=== PATIENT | male | born 1985 | race Caucasian/White ===

== ENCOUNTER 2017-05-11 15:51 | Emergency (ER) | payer OTHER, SELFPAY ==
[2017-05-11 16:15] VITALS: BP 140/92
[2017-05-11] MEDS ORDERED: Acetaminophen/oxyCODONE 325-5 MG Tab PO ONE (16:28)
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
--- NOTE | 2017-05-14 09:05 | CR ---
Left tibia and fibula: Twoviews of the left tibia and fibula were obtained. Comparison: No previous study. No fracture or other bony abnormality is seen. Impression: 1. No abnormality is seen on left tibia and fibula exam. Diagnostic code #1
--- NOTE | 2017-05-14 09:05 | CR ---
Left ankle: Four views of the left ankle were obtained. Comparison: No previous study. Ankle mortise is symmetric. No acute fracture, dislocation or other bony abnormality is seen. Impression: 1. No abnormality is identified on left ankle study. Diagnostic code #1
--- NOTE | 2017-05-14 09:05 | CR ---
Left foot: Four views of the left foot were obtained. Comparison: No previous study. Joint spaces are maintained. No fracture, dislocation or other bony abnormality is seen. Impression: 1. No abnormality is identified on left foot study. Diagnostic code #1
== END 2017-05-11 18:40 | disposition home or self-care (01) ==
LOC: JD.ED 15:51
DX: S89.92XA Unspecified injury of left lower leg, initial encounter (principal); F17.200 Nicotine dependence, unspecified, uncomplicated; V86.59XA Driver of other special all-terrain or other off-road motor vehicle injured in nontraffic accident, initial encounter
CPT/HCPCS: 29515; 73590; 73610; 73630; 99284; A9270; 99283

== ENCOUNTER 2017-06-26 19:23 | Inpatient (IN) | payer OTHER, SELFPAY ==
[2017-06-26] MEDS ORDERED: Sodium Chloride 0.9% 10 ML Syringe FLUSH PRN (20:15)
[2017-06-26] MEDS ORDERED: Piperacillin/Tazobactam 4.5 GM in Sodium Chloride 0.9% 100 ML IV ONE (20:18)
[2017-06-26] MEDS ORDERED: HYDROmorphone 1 MG/ML Syringe IVPUSH ONE (20:18)
[2017-06-26] MEDS ORDERED: Ondansetron 4 MG/2 ML SDV IVPUSH ONE (20:18)
[2017-06-26] MEDS ORDERED: cefTRIAXone 2 GM in Sodium Chloride 0.9% 100 ML IV ONE ×2 (20:18→20:22)
[2017-06-26] MEDS ORDERED: Acetaminophen 325 MG Tab PO ONE (20:18)
[2017-06-26] MEDS ORDERED: Sodium Chloride 0.9% 2,000 ML IV ONE (20:19)
--- NOTE | 2017-06-26 20:26 | EDM.PDOC ---
ED HPI GENERAL MEDICAL PROBLEM - General Chief Complaint: General Stated Complaint: MIGRAINE Time Seen by Provider: 06/26/17 20:05 Source of Information: Reports: Patient History Limitations: Reports: No Limitations - History of Present Illness INITIAL COMMENTS - FREE TEXT/NARRATIVE: Patient is a 31-year-old male who presents to the ED complaining of migraine headache, hot and cold sweats, body aches, poor appetite, and abdominal pain that started yesterday at approximately 1630. Abdominal pain is located to the periumbilical region and right lower quadrant. He does have some pain with urination as well. Pain is worsened with palpation and also with ambulation. States his abdomen feels tight. Patient states he's been up most of the night with these complaints. Has had a poor appetite and has not been consuming any fluids. States he has urinated once today. Headache is described as generalized with no vision changes. He does have sensitivity to light and noise. There is no nuchal rigidity. He's been sleeping all day. Denies any recent precipitating factors that may have provoked a BYRNES. Denies any documented fever, diarrhea, sore throat, cough, SOB, chest pain, diarrhea, or recent sick exposure. He has no pain to his testicles or perianal area. Denies any history of transmitted disease. Headache Pain Score (Numeric/FACES): 8 - Related Data Allergies Allergy/AdvReac Type Severity Reaction Status Date / Time No Known Allergies Allergy Verified 06/27/17 00:29 Home Meds: Home Meds Naproxen [Naprosyn] 250 mg PO ASDIRECTED PRN #30 tablet 06/30/17 [Rx] Propranolol [Inderal LA] 80 mg PO DAILY #30 cap.er 06/30/17 [Rx] SUMAtriptan Succinate [Imitrex] 25 mg PO ASDIRECTED PRN #20 tablet 06/30/17 [Rx] oxyCODONE 10 mg PO Q6H PRN #18 tablet 06/30/17 [Rx] Past Medical History - Past Health History Medical/Surgical History: Denies Medical/Surgical History Musculoskeletal History: Reports: Fracture Social & Family History - Family History Family Medical History: Noncontributory - Tobacco Use Smoking Status *Q: Current Every Day Smoker Years of Tobacco use: 1 Packs/Tins Daily: 0.3 - Caffeine Use Caffeine Use: Reports: Coffee - Recreational Drug Use Recreational Drug Use: No ED ROS GENERAL - Review of Systems Review Of Systems: See Below Constitutional: Reports: Fever, Chills, Malaise, Weakness, Fatigue, Decreased Appetite HEENT: Reports: No Symptoms Respiratory: Denies: Shortness of Breath, Wheezing, Pleuritic Chest Pain, Cough , Sputum Cardiovascular: Denies: Chest Pain, Dyspnea on Exertion, Palpitations, Syncope GI/Abdominal: Reports: Abdominal Pain, Decreased Appetite, Distension, Nausea. Denies: Black Stool, Bloody Stool, Constipation, Diarrhea, Difficulty Swallowing , Flatus, Hematemesis, Hematochezia, Melena, Vomiting : Reports: Dysuria, Hematuria. Denies: Flank Pain, Frequency, Incontinence, Pain (To testicles), Urgency, Urinary Retention Musculoskeletal: Reports: Muscle Pain (Generalized) Skin: Denies: Rash Neurological: Reports: No Symptoms ED EXAM, GENERAL - Physical Exam Exam: See Below Exam Limited By: No Limitations General Appearance: Alert, WD/WN, Moderate Distress Eye Exam: Bilateral Eye: EOMI, Nystagmus (None found), PERRL Ears: Hearing Grossly Normal Nose: Normal Inspection Throat/Mouth: Normal Voice, No Airway Compromise, Other (Dry oral mucosa, no erythema, exudates, swelling to the posterior pharynx ) Neck: Normal Inspection, Supple, Non-Tender, Full Range of Motion. No: Lymphadenopathy (L), Lymphadenopathy (R) Respiratory/Chest: No Respiratory Distress, Lungs Clear, Normal Breath Sounds, No Accessory Muscle Use, Chest Non-Tender Cardiovascular: Normal Peripheral Pulses, Tachycardia Peripheral Pulses: 2+: Radial (R) GI/Abdominal: Soft, No Organomegaly, No Abnormal Bruit, No Mass, Tender ( Periumbilical/McBurney's point), Other (Hyperactive bowel sounds). No: Rigid (Male) Exam: Deferred Rectal (Males) Exam: Deferred Back Exam: Normal Inspection. No: CVA Tenderness (L), CVA Tenderness (R) Extremities: Normal Inspection, Normal Range of Motion, Non-Tender Neurological: Alert, Oriented, CN II-XII Intact, Normal Cognition, No Motor/ Sensory Deficits Psychiatric: Normal Affect, Normal Mood Skin Exam: Dry, Intact, Increased Warmth, Other (Flushed) Course - Vital Signs Last Recorded V/S: Last Vital Signs Temp 98.1 F 06/30/17 08:24 Pulse 53 L 06/30/17 08:24 Resp 20 06/30/17 08:24 BP 131/85 06/30/17 08:24 Pulse Ox 95 06/30/17 08:24 - Orders/Labs/Meds Orders: Medication Orders Albuterol/Ipratropium (Duoneb 3.0-0.5 Mg/3 Ml) 3 ml NEB Q4H PRN PRN Reason: Shortness Of Breath/wheezing Calcium Carbonate/Glycine (Tums) 1,000 mg PO Q2HR PRN PRN Reason: Indigestion Last Admin: 06/30/17 08:39 Dose: 1,000 mg Famotidine (Pepcid) 20 mg PO BID [facility] Last Admin: 06/30/17 08:39 Dose: 20 mg Admin: 06/29/17 23:58 Dose: Admin: 06/29/17 19:36 Dose: 20 mg Admin: 06/29/17 09:14 Dose: 20 mg Admin: 06/28/17 20:08 Dose: 20 mg Hydralazine HCl (Apresoline) 20 mg IVPUSH Q4H PRN PRN Reason: Hypertension Hydromorphone HCl (Dilaudid) 1 mg IVPUSH Q4H PRN PRN Reason: Pain (severe 7-10) Last Admin: 06/29/17 17:56 Dose: 1 mg Admin: 06/29/17 12:44 Dose: 1 mg Admin: 06/29/17 06:29 Dose: 1 mg Admin: 06/29/17 00:26 Dose: 1 mg Admin: 06/28/17 20:09 Dose: 1 mg Admin: 06/28/17 16:13 Dose: 1 mg Admin: 06/28/17 12:56 Dose: 1 mg Admin: 06/28/17 04:35 Dose: 1 mg Admin: 06/27/17 20:32 Dose: 1 mg Admin: 06/27/17 16:22 Dose: 1 mg Admin: 06/27/17 11:58 Dose: 1 mg Promethazine HCl 12.5 mg/ (Sodium Chloride) 50.5 mls @ 100 mls/hr IV Q6H PRN PRN Reason: Nausea/Vomiting Sodium Chloride (Normal Saline) 1,000 mls @ 250 mls/hr IV ASDIRECTED [facility] Last Admin: 06/30/17 09:07 Dose: 250 mls/hr Infusion: 06/30/17 08:32 Dose: 250 mls/hr Admin: 06/30/17 04:32 Dose: 250 mls/hr Infusion: 06/30/17 04:32 Dose: 250 mls/hr Admin: 06/30/17 00:32 Dose: 250 mls/hr Infusion: 06/30/17 00:32 Dose: 250 mls/hr Admin: 06/29/17 20:38 Dose: 250 mls/hr Infusion: 06/29/17 20:38 Dose: 250 mls/hr Admin: 06/29/17 17:01 Dose: 250 mls/hr Infusion: 06/29/17 14:36 Dose: 250 mls/hr Admin: 06/29/17 10:36 Dose: 250 mls/hr Ibuprofen (Motrin) 800 mg PO Q6H PRN PRN Reason: Fever Last Admin: 06/29/17 19:36 Dose: 800 mg Admin: 06/28/17 20:10 Dose: 800 mg Admin: 06/28/17 12:55 Dose: 800 mg Lidocaine (Lidoderm 5%) 700 mg TOP Q24H [facility] Last Admin: 06/29/17 15:40 Dose: Not Given Admin: 06/28/17 17:41 Dose: Not Given Lorazepam (Ativan) 1 mg IV Q6H PRN PRN Reason: Anxiety Last Admin: 06/27/17 09:20 Dose: 1 mg Magnesium Sulfate (Pharmacy To Dose - Magnesium Replacement) 0 dose .XX ASDIRECTED PRN PRN Reason: RX TO MONITOR MAG LEVELS Metoprolol Tartrate (Lopressor) 5 mg IVPUSH Q4H PRN PRN Reason: Tachycardia Ondansetron HCl (Zofran) 4 mg IV Q6H PRN PRN Reason: Nausea/Vomiting Potassium Chloride (Pharmacy To Dose - Potassium Replacement) 0 dose .XX ASDIRECTED PRN PRN Reason: RX TO MONITOR K LEVELS Propranolol HCl (Inderal La) 80 mg PO DAILY [facility] Last Admin: 06/30/17 08:40 Dose: 80 mg Admin: 06/29/17 09:14 Dose: 80 mg Admin: 06/28/17 08:08 Dose: 80 mg Admin: 06/27/17 09:21 Dose: 80 mg Sodium Chloride (Saline Flush) 10 ml FLUSH ASDIRECTED PRN PRN Reason: Keep Vein Open Last Admin: 06/26/17 20:44 Dose: 10 ml Temazepam (Restoril) 15 mg PO BEDTIME PRN PRN Reason: Sleep Tramadol HCl (Ultram) 100 mg PO Q6H PRN PRN Reason: Pain Last Admin: 06/30/17 04:36 Dose: 100 mg Admin: 06/29/17 17:01 Dose: 100 mg Labs: Laboratory Tests 06/26/17 06/26/17 06/26/17 Range/Units 20:40 20:40 20:40 WBC 4.62 (4.23-9.07) K/mm3 RBC 4.82 (4.63-6.08) M/mm3 Hgb 15.3 (13.7-17.5) gm/L Hct 42.1 (40.1-51.0) % MCV 87.3 (79.0-92.2) fl MCH 31.7 (25.7-32.2) pg MCHC 36.3 H (32.2-35.5) g/dl RDW Std Deviation 41.3 (35.1-43.9) fL Plt Count 139 L (163-337) K/mm3 MPV 9.4 (9.4-12.3) fl Neut % (Auto) 81.3 H (34.0-67.9) % Lymph % (Auto) 7.8 L (21.8-53.1) % Lamb % (Auto) 6.9 (5.3-12.2) % Eos % (Auto) 3.2 (0.8-7.0) Baso % (Auto) 0.6 (0.1-1.2) % Neut # (Auto) 3.75 (1.78-5.38) K/mm3 Lymph # (Auto) 0.36 L (1.32-3.57) K/mm3 Lamb # (Auto) 0.32 (0.30-0.82) K/mm3 Eos # (Auto) 0.15 (0.04-0.54) K/mm3 Baso # (Auto) 0.03 (0.01-0.08) K/mm3 Manual Slide Review Abnormal smear PT 11.2 (8.0-13.0) SECONDS INR 1.03 APTT 28 (22-36) SECONDS Sodium 133 L (136-145) mEq/L Potassium 4.1 (3.5-5.1) mEq/L Chloride 98 (98-107) mEq/L Carbon Dioxide 26 (21-32) mEq/L Anion Gap 13.1 (5-15) BUN 16 (7-18) mg/dL Creatinine 1.3 (0.7-1.3) mg/dL Est Cr Clr Drug Dosing 85.01 mL/min Estimated GFR (MDRD) > 60 (>60) mL/min BUN/Creatinine Ratio 12.3 L (14-18) Glucose 118 H (74-106) mg/dL Lactic Acid (0.4-2.0) mmol/L Calcium 8.9 (8.5-10.1) mg/dL Total Bilirubin 4.8 H (0.2-1.0) mg/dL Direct Bilirubin (0.0-0.2) mg/dl GGT (15-85) U/L AST 512 H (15-37) U/L ALT 497 H (16-63) U/L Alkaline Phosphatase 152 H (46-116) U/L C-Reactive Protein 7.0 H* (<1.0) mg/dL Total Protein 7.8 (6.4-8.2) g/dl Albumin 4.1 (3.4-5.0) g/dl Globulin 3.7 gm/dL Albumin/Globulin Ratio 1.1 (1-2) Lipase 64 L (73-393) U/L HIV-1 Ab Rapid Screen (NEGATIVE) 06/26/17 06/26/17 06/26/17 Range/Units 20:40 20:40 21:05 WBC (4.23-9.07) K/mm3 RBC (4.63-6.08) M/mm3 Hgb (13.7-17.5) gm/L Hct (40.1-51.0) % MCV (79.0-92.2) fl MCH (25.7-32.2) pg MCHC (32.2-35.5) g/dl RDW Std Deviation (35.1-43.9) fL Plt Count (163-337) K/mm3 MPV (9.4-12.3) fl Neut % (Auto) (34.0-67.9) % Lymph % (Auto) (21.8-53.1) % Lamb % (Auto) (5.3-12.2) % Eos % (Auto) (0.8-7.0) Baso % (Auto) (0.1-1.2) % Neut # (Auto) (1.78-5.38) K/mm3 Lymph # (Auto) (1.32-3.57) K/mm3 Lamb # (Auto) (0.30-0.82) K/mm3 Eos # (Auto) (0.04-0.54) K/mm3 Baso # (Auto) (0.01-0.08) K/mm3 Manual Slide Review PT (8.0-13.0) SECONDS INR APTT (22-36) SECONDS Sodium (136-145) mEq/L Potassium (3.5-5.1) mEq/L Chloride (98-107) mEq/L Carbon Dioxide (21-32) mEq/L Anion Gap (5-15) BUN (7-18) mg/dL Creatinine (0.7-1.3) mg/dL Est Cr Clr Drug Dosing mL/min Estimated GFR (MDRD) (>60) mL/min BUN/Creatinine Ratio (14-18) Glucose (74-106) mg/dL Lactic Acid 0.7 (0.4-2.0) mmol/L Calcium (8.5-10.1) mg/dL Total Bilirubin (0.2-1.0) mg/dL Direct Bilirubin 1.50 H (0.0-0.2) mg/dl GGT 425 H (15-85) U/L AST (15-37) U/L ALT (16-63) U/L Alkaline Phosphatase (46-116) U/L C-Reactive Protein (<1.0) mg/dL Total Protein (6.4-8.2) g/dl Albumin (3.4-5.0) g/dl Globulin gm/dL Albumin/Globulin Ratio (1-2) Lipase (73-393) U/L HIV-1 Ab Rapid Screen Negative (NEGATIVE) Meds: Medications Generic Name Dose Route Start Last Admin Trade Name Freq PRN Reason Stop Dose Admin Albuterol/Ipratropium 3 ml 06/27/17 00:34 Duoneb 3.0-0.5 Mg/3 Ml NEB Q4H PRN Shortness Of Breath/wheezing Calcium Carbonate/Glycine 1,000 mg 06/29/17 16:12 06/30/17 08:39 Tums PO 1,000 mg Q2HR PRN Administration Indigestion Famotidine 20 mg 06/28/17 21:00 06/30/17 08:39 Pepcid PO 20 mg BID YANELI Administration Hydralazine HCl 20 mg 06/27/17 00:37 Apresoline IVPUSH Q4H PRN Hypertension Hydromorphone HCl 1 mg 06/27/17 00:31 06/29/17 17:56 Dilaudid IVPUSH 1 mg Q4H PRN Administration Pain (severe 7-10) Promethazine HCl 12.5 mg/ 50.5 mls @ 100 mls/hr 06/27/17 00:31 Sodium Chloride IV Q6H PRN Nausea/Vomiting Sodium Chloride 1,000 mls @ 250 mls/hr 06/29/17 10:30 06/30/17 09:07 Normal Saline IV 250 mls/hr ASDIRECTED YANELI Administration Ibuprofen 800 mg 06/28/17 12:42 06/29/17 19:36 Motrin PO 800 mg Q6H PRN Administration Fever Lidocaine 700 mg 06/28/17 16:00 06/29/17 15:40 Lidoderm 5% TOP Not Given Q24H YANELI Lorazepam 1 mg 06/27/17 00:31 06/27/17 09:20 Ativan IV 1 mg Q6H PRN Administration Anxiety Magnesium Sulfate 0 dose 06/27/17 00:45 Pharmacy To Dose - Magnesium Replacement .XX ASDIRECTED PRN RX TO MONITOR MAG LEVELS Metoprolol Tartrate 5 mg 06/27/17 00:37 Lopressor IVPUSH Q4H PRN Tachycardia Ondansetron HCl 4 mg 06/27/17 00:31 Zofran IV Q6H PRN Nausea/Vomiting Potassium Chloride 0 dose 06/27/17 00:45 Pharmacy To Dose - Potassium Replacement .XX ASDIRECTED PRN RX TO MONITOR K LEVELS Propranolol HCl 80 mg 06/27/17 09:00 06/30/17 08:40 Inderal La PO 80 mg DAILY YANELI Administration Sodium Chloride 10 ml 06/26/17 20:15 06/26/17 20:44 Saline Flush FLUSH 10 ml ASDIRECTED PRN Administration Keep Vein Open Temazepam 15 mg 06/27/17 01:00 Restoril PO BEDTIME PRN Sleep Tramadol HCl 100 mg 06/29/17 13:25 06/30/17 04:36 Ultram PO 100 mg Q6H PRN Administration Pain Discontinued Medications Generic Name Dose Route Start Last Admin Trade Name Freq PRN Reason Stop Dose Admin Acetaminophen 975 mg 06/26/17 20:18 06/26/17 20:46 Tylenol PO 06/26/17 20:19 975 mg NOW ONE Administration Acetaminophen 650 mg 06/28/17 04:50 Tylenol PO Q4H PRN Fever Acetaminophen/Butalbital/Caffeine 2 tab 06/27/17 00:19 06/28/17 04:34 Fioricet 325-50-40 Mg PO 2 tab Q6H PRN Administration Headache Dexamethasone 4 mg 06/27/17 01:05 06/27/17 01:33 Dexamethasone IVPUSH 06/27/17 01:06 4 mg ONETIME ONE Administration Diatrizoate Meglum/Diatrizoate Sod 90 ml 06/26/17 22:33 06/26/17 22:34 Gastrografin 37% PO 06/26/17 22:34 90 ml ONETIME ONE Administration Diphenhydramine HCl 50 mg 06/27/17 00:30 06/27/17 00:56 Benadryl IVPUSH 06/27/17 00:31 50 mg ONETIME ONE Administration Famotidine 20 mg 06/27/17 09:00 06/28/17 08:07 Pepcid IVPUSH 20 mg BID YANELI Administration Hydromorphone HCl 1 mg 06/26/17 20:18 06/26/17 20:40 Dilaudid IVPUSH 06/26/17 20:19 1 mg ONETIME ONE Administration Hydromorphone HCl 1 mg 06/27/17 00:04 06/27/17 00:45 Dilaudid IVPUSH 06/27/17 00:05 1 mg ONETIME ONE Administration Piperacillin Sod/Tazobactam 100 mls @ 200 mls/hr 06/26/17 20:18 06/27/17 01: 27 Sod 4.5 gm/ Sodium Chloride IV 06/26/17 20:47 200 mls/hr ONETIME ONE Administration Sodium Chloride 2,000 mls @ 999 mls/hr 06/26/17 20:19 06/26/17 20:38 Normal Saline IV 06/26/17 22:19 999 mls/hr ONETIME ONE Administration Ceftriaxone Sodium 2 gm/ 100 mls @ 200 mls/hr 06/26/17 20:18 06/26/17 20:44 Sodium Chloride IV 06/26/17 20:47 Not Given Q24H ONE Ceftriaxone Sodium 2 gm/ 100 mls @ 200 mls/hr 06/26/17 20:22 06/27/17 00:41 Sodium Chloride IV 06/26/17 20:47 200 mls/hr ONETIME ONE Administration Sodium Chloride Confirm 06/26/17 20:37 06/26/17 20:41 Normal Saline Administered 06/26/17 20:38 Not Given Dose 100 mls @ as directed .ROUTE .STK-MED ONE Sodium Chloride 1,000 mls @ 999 mls/hr 06/26/17 22:57 06/26/17 23:06 Normal Saline IV 06/26/17 23:57 999 mls/hr ONETIME ONE Administration Sodium Chloride 1,000 mls @ 250 mls/hr 06/27/17 00:30 06/27/17 14:53 Normal Saline IV 250 mls/hr ASDIRECTED YANELI Administration Ceftriaxone Sodium 1 gm/ 100 mls @ 200 mls/hr 06/27/17 20:00 Sodium Chloride IV Q24H YANELI Sodium Chloride 100 mls @ 125 mls/hr 06/27/17 15:45 Normal Saline IV ASDIRECTED YANELI Dextrose/Sodium Chloride 1,000 mls @ 125 mls/hr 06/27/17 18:30 06/29/17 02:01 Dextrose 5%-Normal Saline IV 125 mls/hr ASDIRECTED YANELI Administration Iopamidol 125 ml 06/26/17 22:33 06/26/17 22:35 Isovue-300 (61%) IVPUSH 06/26/17 22:34 125 ml ONETIME ONE Administration Magnesium Oxide 400 mg 06/28/17 08:00 06/28/17 08:07 Magnesium Oxide PO 06/28/17 08:01 400 mg ONETIME ONE Administration Metoclopramide HCl 5 mg 06/27/17 00:48 06/27/17 01:31 Reglan IVPUSH 06/27/17 00:49 5 mg ONETIME ONE Administration Ondansetron HCl 4 mg 06/26/17 20:18 06/26/17 20:39 Zofran IVPUSH 06/26/17 20:19 4 mg ONETIME ONE Administration Oxycodone HCl 5 mg 06/27/17 00:31 06/28/17 04:34 Oxycodone PO 5 mg Q4H PRN Administration Pain (moderate 4-6) Pantoprazole Sodium 40 mg 06/27/17 00:34 06/27/17 00:56 Protonix Iv IVPUSH 06/27/17 00:35 40 mg ONETIME ONE Administration Pantoprazole Sodium 40 mg 06/30/17 08:31 06/30/17 08:39 Protonix Iv IVPUSH 06/30/17 08:32 40 mg ONETIME ONE Administration Pneumococcal Polyvalent Vaccine 0.5 ml 06/27/17 01:29 Pneumovax 23 IM 06/27/17 01:30 .ONCE ONE Sumatriptan Succinate 6 mg 06/27/17 00:48 06/27/17 01:30 Imitrex SUBCUT 06/27/17 00:49 Not Given ONETIME ONE Temazepam 30 mg 06/27/17 00:29 06/27/17 00:56 Restoril PO 06/27/17 00:30 30 mg BEDTIME ONE Administration Topiramate 25 mg 06/27/17 00:43 06/27/17 01:32 Topamax PO 06/27/17 00:44 Not Given BEDTIME ONE Topiramate 25 mg 06/27/17 21:00 Topamax PO BEDTIME YANELI - Re-Assessments/Exams Free Text/Narrative Re-Assessment/Exam: Order peripheral IV with normal saline 2000 mL, Tylenol 950 mg by mouth, Dilaudid 1 mg IVP, and Zofran 4 mg IVP. Initial labs and studies include CBC, chem 14, lipase, CRP, lactic acid, UA, blood culture x2, and CT the abdomen and pelvis. Patient had abnormal drainage from penis thus will obtain G/C as well. Patient meets sepsis. Has pain to the right lower quadrant and periumbilical region. No Lockwood sign. Ordered Zosyn 4.5 mg IV and Rocephin 2 g IV in fear patient may have appendicitis. Labs reviewed: White blood cell count 4.62, hemoglobin is 15.3, platelets 139, neutrophil percentage is 81.3, lymphocyte percentage is 7.8, sodium 133, creatinine 1.3, glucose 118, lactic acid 0.7, AST 512, ALT 497, alk phosphatase 152, CRP 7.0, and lipase is 64. Ordered GGT,direct bilirubin, HIV, Urine Drug Tox, and Hepatitis Panel. CT of the abdomen and pelvis results are pending. 2239: CT the abdomen and pelvis did not elicit any acute findings. Shared results of lab and CT with patient. Asked the patient if he has hepatitis to which he denied. States his was positive for hepatitis of unknown type. Spouse was incarcerated and obtained tattoos so presumably she has hepatitis C. Patient has never been tested. Again patient is in a monogamous relationship. He's had 2 sexual partners. Denies any history of STDs. was tested for HIV 7 months ago with of their child and it was negative. Patient has never been tested for HIV. Reassessment, pain to the periumbilical area and RLQ. No lockwood sign present. [address] Robertson he has accepted the patient. Ordered an additional 1 L of normal saline. MCG to be completed. Patient unable to provide UA. Patient meets inpatient criteria. 06/26/17 23:43 Lab was contacted for results of GGT and direct bilirubin. GGT was 425 and direct bilirubin is 1.50. Both results are high. Shared results with Dr. Robertson. He will determine in the a.m. if ultrasound required. Admit order placed. 06/26/17 23:58 HIV Negative. Departure - Departure Time of Disposition: 23:46 Disposition: Admitted As Inpatient 66 Condition: Fair Clinical Impression: Elevated LFTs, Abdominal pain in male, Dehydration fever Fever Qualifiers: Fever type: due to other condition Qualified Code(s): R50.81 - Fever presenting with conditions classified elsewhere - Discharge Information
[2017-06-26] MEDS ORDERED: Sodium Chloride 0.9% 100 ML ONE (20:37)
[2017-06-26] MEDS ORDERED: Diatrizoate Meglumine/Diatrizoate Sodium 37% 120 ML Bottle PO ONE (22:33)
[2017-06-26] MEDS ORDERED: Iopamidol 612 MG/ML 150 ML Bottle IVPUSH ONE (22:33)
[2017-06-26] MEDS ORDERED: Sodium Chloride 0.9% 1,000 ML IV ONE (22:57)
--- NOTE | 2017-06-26 23:46 | PCM.HP ---
H&P History of Present Illness - General Date of Service: 06/26/17 Admit Problem/Dx: Migraine BYRNES and Abdominal Pain Source of Information: Patient, Provider, RN Notes Reviewed History Limitations: Reports: No Limitations - History of Present Illness Initial Comments - Free Text/Narative: This is a 31-year-old healthy white male who presents to the emergency department with complaints of migraine headache along with abdominal pain. His symptoms are associated with hot and cold temperature, sweats, generalized body aches, and poor appetite that started yesterday afternoon. His abdominal pain is localized to the right side extending to the right lower quadrant. He admits to having some hematuria and dysuria with urination. He is sexually active and in a monogamous relationship. He reports no hx/o STDs. His abdominal pain is aggravated by manual palpation and with certain movements. He is passing gas and his last bowel movement was yesterday, regular and without diarrhea. Patient also complains of having abdominal tightness. As for his headaches, he was never formally diagnosed with migraine headaches in the past. However he reports photophobia and phonophobia. His headache run from the frontal region and goes all the way to his posterior head. He reports having muscle tension at the back of his neck. Patient has been sleeping all day due to his current illness. He denies any fever or any upper respiratory infection. Patient denies any history of renal stone. No recent travel. No Hx/o GI surgery or trauma. He drinks occasionally. He smokes 45 cigarettes a day. However he denies illicit drug use. He has been taking Tylenol at least 200 mg PRN for his migraine headaches. Yesterday he took about 6 pills. He also takes Aleve 200 mg if no relief with Tylenol. Patient reports no similar presentation or this kind of illness in the past. His initial workup in emergency department shows a fairly unremarkable CBC with exception of platelet of 139. PT is 11.2, INR is 1.03, and APTT is 28. His chemistry is remarkable for sodium of 133, glucose of 118, total bilirubin of 4.8, direct bilirubin of 1.50, GGT of 425, AST of 512, ALT of 497, alkaline phosphatase of 152, CRP of 7 and lipase of 64. UDS is positive for opiates. His UA is not suggestive of urinary tract infection but noted for 2+ bilirubin and greater than or equal to 8 of urobilinogen. He is HIV 1 antibody negative. His abdomen/pelvis CT scan with IV contrast V-rad report reads diffuse fatty infiltration of the liver. No acute findings. He is being admitted for abdominal pain suspected hepatobiliary disease in etiology cannot rule out acute hepatitis and migraine headache. Headache Pain Score (Numeric/FACES): 8 - Related Data Allergies/Adverse Reactions: Allergies Allergy/AdvReac Type Severity Reaction Status Date / Time No Known Allergies Allergy Verified 06/27/17 00:29 Home Medications: Home Meds . [No Known Home Meds] 06/26/17 [History] Past Medical History - Past Health History Medical/Surgical History: Denies Medical/Surgical History Musculoskeletal History: Reports: Fracture Social & Family History - Family History Family Medical History: Noncontributory - Tobacco Use Smoking Status *Q: Current Every Day Smoker Years of Tobacco use: 1 Packs/Tins Daily: 0.3 - Caffeine Use Caffeine Use: Reports: Coffee - Recreational Drug Use Recreational Drug Use: No H&P Review of Systems - Review of Systems: Review Of Systems: See Below General: Reports: Decreased Appetite. Denies: Fever, Chills, Malaise, Weakness , Fatigue HEENT: Reports: No Symptoms, Headaches, Other (Photophobia) Pulmonary: Denies: Shortness of Breath Cardiovascular: Denies: Chest Pain Gastrointestinal: Reports: Abdominal Pain, Decreased Appetite, Flatus. Denies: Nausea, Vomiting Genitourinary: Reports: Dysuria, Burning, Hematuria Skin: Denies: Cyanosis, Jaundice, Pallor, Bruising, Pruritis, Rash, Erythema, Wound, Lesions Psychiatric: Denies: Depression, Anxiety, Hallucinations, Suicidal Ideation, Homicidal Ideation Neurological: Denies: Difficulty Walking, Weakness, Gait Disturbance Hematologic/Lymphatic: Reports: No Symptoms Immunologic: Reports: No Symptoms Exam - Exam Exam: See Below - Vital Signs Vital Signs: Last Vital Signs Temp 38.8 C H 06/26/17 20:46 Pulse 119 H 06/26/17 19:33 Resp 16 06/26/17 19:33 BP 137/85 06/26/17 19:33 Pulse Ox 99 06/26/17 19:33 Weight: 102.058 kg - Exam General: Alert, Oriented, Cooperative, Mild Distress, Other (Obese) HEENT: Conjunctiva Clear, EACs Clear, EOMI, Hearing Intact, Mucosa Moist & [place] , Nares Patent, Normal Nasal Septum, Posterior Pharynx Clear, Pupils Equal, Pupils Reactive, TMs Clear Neck: Supple, Trachea Midline, +2 Carotid Pulse wo Bruit, Full Range of Motion. No: JVD Lungs: Clear to Auscultation, Normal Respiratory Effort Cardiovascular: Regular Rate, Regular Rhythm GI/Abdominal Exam: Soft, No Distention, No Abnormal Bruit, No Mass, Tender (RUQ) , Abnormal Bowel Sounds, Other (Obturator and Psoas sign negative). No: No Organomegaly, Distended, Guarding, Rigid, Rebound, Mass (Male) Exam: Suprapubic Fullness. No: Scrotal Swelling, Urethral Discharge Rectal (Males) Exam: Deferred Back Exam: Normal Inspection, CVA Tenderness (R), Decreased Range of Motion, Vertebral Tenderness Extremities: Normal Inspection, Normal Range of Motion, Non-Tender, No Pedal Edema, Normal Capillary Refill Peripheral Pulses: 3+: Posterior Tibial (L), Posterior Tibial (R), Dorsalis Pedis (L), Dorsalis Pedis (R) Skin: Warm, Dry, Intact, Other (Yellow) Neuro Extensive - Mental Status: Oriented x3, Normal Cognition, Memory Intact Neuro Extensive - Motor, Sensory, Reflexes: CN II-XII Intact (limited due to Migraine BYRNES) Psychiatric: Alert, Normal Affect, Normal Mood - Patient Data Result Diagrams: 06/27/17 05:30 06/27/17 05:30 *Q Meaningful Use (ADM) - VTE *Q VTE Criteria *Q: - Stroke *Q Stroke Criteria *Q: - AMI *Q AMI Criteria *Q: Problem List Initiated/Reviewed/Updated: Yes Orders Last 24hrs: Medication Orders Sodium Chloride (Normal Saline) 1,000 mls @ 999 mls/hr IV ONETIME ONE Stop: 06/26/17 23:57 Last Admin: 06/26/17 23:06 Dose: 999 mls/hr Sodium Chloride (Saline Flush) 10 ml FLUSH ASDIRECTED PRN PRN Reason: Keep Vein Open Last Admin: 06/26/17 20:44 Dose: 10 ml Assessment/Plan Comment:: Assessment/Plan: Acute: Abdominal Pain - Likely 2/2 Hepato-Biliary Disease - Elevated LE and GGT - Non-Alcoholic - Treat Underlying cause - UA is not suggestive of UTI Hepato-Biliary Disease - Infection vs Auto-immune - CT scan V-rad: Diffuse Fatty Liver Disease - Cannot r/o Acute Hepatitis - He denies recent rapid weight loss - Risk factor: In relationship with someone who is infected with viral hepatitis - Hepatitis Panel ordered in ED - DDx: Cholangitis, Cirrhosis, Malignancy, Auto-immune, Drugs/Toxins, Strictures of Bile Ducts, Parasites (unlikely eosinophils are low) Jaundice/Hyperbilubinemia - Hepatic vs Post Hepatic: Suspect Hepatic due to Diffuse Fatty Liver as mentiond on CT scan - Urobilinogen >=8 - Urine Bili 2+, Direct Bili 1.5 and Total Bili 4.8 - RB is normal and no hx/o blood cell disorders (Rule out Pre-hepatic) - U/S in AM Hematuria and Dysuria - Awaiting UA result - Still sexually active with his partner only - STD panel ordered in ED - Already received IV Zosyn and Rocephin in ED Diffuse Fatty Liver Disease on CT scan - Monitor for acute hepatic failure - He has been taking a lot of Tylenol lately due to Migraine HAs - IV hydration and supportive Care - Dietary consult Migraine BYRNES - Photophobia and Tension at the back of his neck - IV Reglan + Sumatriptan and Steroid for immediate relief - IV Benadryl to help with sleep - Topamax +/- BB for maintenance Plan: Admit to Med-Surge Routine AM Labs UDS pos for opiates (he has been getting narcotics for pain control Abdominal U/S in AM STD Panel ordered in ED GS consult in AM He is negative for HIV screening Additional orders as above SW/CM for d/c planning
[2017-06-27] MEDS ORDERED: HYDROmorphone 1 MG/ML Syringe IVPUSH ONE (00:04)
[2017-06-27] MEDS ORDERED: Temazepam 30 MG Cap PO ONE (00:29)
[2017-06-27] MEDS ORDERED: diphenhydrAMINE 50 MG/ML SDV IVPUSH ONE (00:30)
[2017-06-27] MEDS ORDERED: Promethazine 12.5 MG in Sodium Chloride 0.9% 50 ML IV PRN (00:31)
[2017-06-27] MEDS ORDERED: LORazepam 2 MG/ML MDV IV PRN (00:31)
[2017-06-27] MEDS ORDERED: Ondansetron 4 MG/2 ML SDV IV PRN (00:31)
[2017-06-27] MEDS ORDERED: Albuterol/Ipratropium 3.0-0.5 MG/3 ML Neb Soln NEB PRN (00:34)
[2017-06-27] MEDS ORDERED: Pantoprazole 40 MG Vial IVPUSH ONE (00:34)
[2017-06-27] MEDS ORDERED: Metoprolol Tartrate 5 MG/5 ML SDV IVPUSH PRN (00:37)
[2017-06-27] MEDS ORDERED: hydrALAZINE 20 MG/ML SDV IVPUSH PRN (00:37)
[2017-06-27] MEDS ORDERED: Topiramate 25 MG Tab PO ONE (00:43)
[2017-06-27] MEDS: Acetaminophen/Butalbital/Caffeine 325-50-40 MG Tab PO PRN ×2 (00:44→06:13)
[2017-06-27] MEDS ORDERED: SUMAtriptan 6 MG/0.5 ML SDV SUBCUT ONE (00:48)
[2017-06-27] MEDS ORDERED: Metoclopramide 10 MG/2 ML SDV IVPUSH ONE (00:48)
[2017-06-27] MEDS ORDERED: Temazepam 15 MG Cap PO PRN (01:00)
[2017-06-27] MEDS: Sodium Chloride 0.9% 1,000 ML IV SCH ×4 (01:02→14:53)
[2017-06-27] MEDS ORDERED: Dexamethasone 4 MG/ML SDV IVPUSH ONE (01:05)
[2017-06-27] MEDS ORDERED: Pneumococcal Polyvalent-23 Vaccine 0.5 ML SDV IM ONE (01:29)
[2017-06-27 02:36] LABS: C. TRACHOMATIS BY PCR NOT DETECTED; N. GONORRHOEAE BY PCR NOT DETECTED
[2017-06-27] MEDS: oxyCODONE 5 MG Tab PO PRN ×4 (06:13→20:32)
--- NOTE | 2017-06-27 07:21 | CT ---
CT abdomen and pelvis Technique: Multiple axial sections were obtained from the top of the liver inferiorly through the pubic symphysis. Intravenous and oral contrast was utilized. Delayed images were also obtained through the bladder. Comparison: No previous abdominal imaging. Findings: Small portion of the visualized lung bases are clear. Liver shows no focal parenchymal abnormality. Difficult to exclude slight fatty infiltration within the liver. Spleen appears within normal limits. Small amount of reflux of contrast seen into the distal esophagus. Adrenal glands show no nodule. Pancreas is within normal limits. Kidneys show symmetric contrast enhancement without hydronephrosis or mass. Gallbladder shows no calcified gallstones. Aorta shows no aneurysmal dilatation. Appendix is seen and appears normal. No retroperitoneal adenopathy or mesenteric abnormalities are seen. No pelvic mass or adenopathy is seen. Delayed images show contrast within the distal ureters as well as contrast being seen within the bladder. No inflammatory change is identified. No bowel dilatation or free fluid is seen. Bone window settings were reviewed which appear within normal limits for the patient's age. Impression: 1. Incidental findings. Nothing acute is identified on CT study of the abdomen and pelvis. Diagnostic code #2 I agree with preliminary report issued by [employer] ([facility] preliminary report dictated on 06/26/17, 11:36 PM Central Time)
[2017-06-27] MEDS: Famotidine 20 MG/2 ML SDV IVPUSH SCH ×2 (09:20→20:32)
[2017-06-27] MEDS: Propranolol 80 MG Cap.ER PO SCH (09:21)
--- NOTE | 2017-06-27 11:10 | PCM.CONSN ---
- General Info Date of Service: 06/27/17 - Patient Data Vitals - Most Recent: Last Vital Signs Temp 97.2 F 06/27/17 07:45 Pulse 54 L 06/27/17 07:45 Resp 12 06/27/17 07:45 BP 103/59 L 06/27/17 07:45 Pulse Ox 95 06/27/17 07:45 Weight - Most Recent: 105.415 kg I&O - Last 24 Hours: Intake & Output 06/26/17 06/27/17 06/27/17 23:59 07:59 15:59 Intake Total 1425 Output Total 400 Balance 1025 Lab Results Last 24 Hours: Laboratory Results - last 24 hr 06/27/17 06/27/17 06/27/17 Range/Units 00:44 00:45 00:45 WBC (4.23-9.07) K/mm3 RBC (4.63-6.08) M/mm3 Hgb (13.7-17.5) gm/L Hct (40.1-51.0) % MCV (79.0-92.2) fl MCH (25.7-32.2) pg MCHC (32.2-35.5) g/dl RDW Std Deviation (35.1-43.9) fL Plt Count (163-337) K/mm3 MPV (9.4-12.3) fl Neut % (Auto) (34.0-67.9) % Lymph % (Auto) (21.8-53.1) % [place] % (Auto) (5.3-12.2) % Eos % (Auto) (0.8-7.0) Baso % (Auto) (0.1-1.2) % Neut # (Auto) (1.78-5.38) K/mm3 Lymph # (Auto) (1.32-3.57) K/mm3 [place] # (Auto) (0.30-0.82) K/mm3 Eos # (Auto) (0.04-0.54) K/mm3 Baso # (Auto) (0.01-0.08) K/mm3 Manual Slide Review Sodium (136-145) mEq/L Potassium (3.5-5.1) mEq/L Chloride (98-107) mEq/L Carbon Dioxide (21-32) mEq/L Anion Gap (5-15) BUN (7-18) mg/dL Creatinine (0.7-1.3) mg/dL Est Cr Clr Drug Dosing mL/min Estimated GFR (MDRD) (>60) mL/min BUN/Creatinine Ratio (14-18) Glucose (74-106) mg/dL Calcium (8.5-10.1) mg/dL Magnesium (1.8-2.4) mg/dl Total Bilirubin (0.2-1.0) mg/dL AST (15-37) U/L ALT (16-63) U/L Alkaline Phosphatase (46-116) U/L C-Reactive Protein (<1.0) mg/dL Total Protein (6.4-8.2) g/dl Albumin (3.4-5.0) g/dl Globulin gm/dL Albumin/Globulin Ratio (1-2) Urine Color [place] H (Yellow) Urine Appearance Slt cloudy H (Clear) Urine pH 6.0 (5.0-8.0) Ur Specific [place] 1.015 (1.005-1.030) Urine Protein 1+ H (Negative) Urine Glucose (UA) Negative (Negative) Urine Ketones Trace H (Negative) Urine Occult Blood Negative (Negative) Urine Nitrite Negative (Negative) Urine Bilirubin 2+ H (Negative) Urine Urobilinogen >=8.0 H (0.2-1.0) Ur Leukocyte Esterase Negative (Negative) Urine RBC Not seen (0-5) /hpf Urine WBC Not seen (0-5) /hpf Ur Epithelial Cells 0-5 (0-5) /hpf Urine Bacteria Few (FEW) /hpf Urine Mucus Not seen (FEW) /hpf Urine Yeast Not seen (NOT SEEN) Urine Opiates Screen Presumptive positive H (NEGATIVE) Ur Buprenorphine Scrn Negative (NEGATIVE) Ur Oxycodone Screen Negative (NEGATIVE) Urine Methadone Screen Negative (NEGATIVE) Ur Propoxyphene Screen Negative (NEGATIVE) Ur Barbiturates Screen Negative (NEGATIVE) Ur Tricyclics Screen Negative (NEGATIVE) Ur Phencyclidine Scrn Negative (NEGATIVE) Ur Amphetamine Screen Negative (NEGATIVE) U Methamphetamines Scrn Negative (NEGATIVE) U Benzodiazepines Scrn Negative (NEGATIVE) U Cocaine Metab Screen Negative (NEGATIVE) U Marijuana (THC) Screen Negative (NEGATIVE) C trachomatis DNA (PCR) Not detected N gonorrhoeae DNA (PCR) Not detected 06/27/17 06/27/17 Range/Units 05:30 05:30 WBC 5.39 (4.23-9.07) K/mm3 RBC 4.16 L (4.63-6.08) M/mm3 Hgb 13.3 L (13.7-17.5) gm/L Hct 37.4 L (40.1-51.0) % MCV 89.9 (79.0-92.2) fl MCH 32.0 (25.7-32.2) pg MCHC 35.6 H (32.2-35.5) g/dl RDW Std Deviation 42.9 (35.1-43.9) fL Plt Count 130 L (163-337) K/mm3 MPV 9.5 (9.4-12.3) fl Neut % (Auto) 87.9 H (34.0-67.9) % Lymph % (Auto) 4.5 L (21.8-53.1) % [place] % (Auto) 5.9 (5.3-12.2) % Eos % (Auto) 1.3 (0.8-7.0) Baso % (Auto) 0.2 (0.1-1.2) % Neut # (Auto) 4.74 (1.78-5.38) K/mm3 Lymph # (Auto) 0.24 L (1.32-3.57) K/mm3 [place] # (Auto) 0.32 (0.30-0.82) K/mm3 Eos # (Auto) 0.07 (0.04-0.54) K/mm3 Baso # (Auto) 0.01 (0.01-0.08) K/mm3 Manual Slide Review Abnormal smear Sodium 136 (136-145) mEq/L Potassium 4.4 (3.5-5.1) mEq/L Chloride 104 (98-107) mEq/L Carbon Dioxide 23 (21-32) mEq/L Anion Gap 13.4 (5-15) BUN 12 (7-18) mg/dL Creatinine 1.0 (0.7-1.3) mg/dL Est Cr Clr Drug Dosing 110.51 mL/min Estimated GFR (MDRD) > 60 (>60) mL/min BUN/Creatinine Ratio 12.0 L (14-18) Glucose 115 H (74-106) mg/dL Calcium 7.5 L (8.5-10.1) mg/dL Magnesium 2.0 (1.8-2.4) mg/dl Total Bilirubin 5.7 H (0.2-1.0) mg/dL AST 497 H (15-37) U/L ALT 533 H (16-63) U/L Alkaline Phosphatase 132 H (46-116) U/L C-Reactive Protein 7.4 H* (<1.0) mg/dL Total Protein 6.7 (6.4-8.2) g/dl Albumin 3.4 (3.4-5.0) g/dl Globulin 3.3 gm/dL Albumin/Globulin Ratio 1.0 (1-2) Urine Color (Yellow) Urine Appearance (Clear) Urine pH (5.0-8.0) Ur Specific [place] (1.005-1.030) Urine Protein (Negative) Urine Glucose (UA) (Negative) Urine Ketones (Negative) Urine Occult Blood (Negative) Urine Nitrite (Negative) Urine Bilirubin (Negative) Urine Urobilinogen (0.2-1.0) Ur Leukocyte Esterase (Negative) Urine RBC (0-5) /hpf Urine WBC (0-5) /hpf Ur Epithelial Cells (0-5) /hpf Urine Bacteria (FEW) /hpf Urine Mucus (FEW) /hpf Urine Yeast (NOT SEEN) Urine Opiates Screen (NEGATIVE) Ur Buprenorphine Scrn (NEGATIVE) Ur Oxycodone Screen (NEGATIVE) Urine Methadone Screen (NEGATIVE) Ur Propoxyphene Screen (NEGATIVE) Ur Barbiturates Screen (NEGATIVE) Ur Tricyclics Screen (NEGATIVE) Ur Phencyclidine Scrn (NEGATIVE) Ur Amphetamine Screen (NEGATIVE) U Methamphetamines Scrn (NEGATIVE) U Benzodiazepines Scrn (NEGATIVE) U Cocaine Metab Screen (NEGATIVE) U Marijuana (THC) Screen (NEGATIVE) C trachomatis DNA (PCR) N gonorrhoeae DNA (PCR) Med Orders - Current: Current Medications Acetaminophen/Butalbital/Caffeine (Fioricet 325-50-40 Mg) 2 tab PO Q6H PRN PRN Reason: Headache Last Admin: 06/27/17 06:13 Dose: 2 tab Albuterol/Ipratropium (Duoneb 3.0-0.5 Mg/3 Ml) 3 ml NEB Q4H PRN PRN Reason: Shortness Of Breath/wheezing Famotidine (Pepcid) 20 mg IVPUSH BID [facility] Last Admin: 06/27/17 09:20 Dose: 20 mg Hydralazine HCl (Apresoline) 20 mg IVPUSH Q4H PRN PRN Reason: Hypertension Hydromorphone HCl (Dilaudid) 1 mg IVPUSH Q4H PRN PRN Reason: Pain (severe 7-10) Sodium Chloride (Normal Saline) 1,000 mls @ 250 mls/hr IV ASDIRECTED [facility] Last Admin: 06/27/17 09:23 Dose: 250 mls/hr Promethazine HCl 12.5 mg/ (Sodium Chloride) 50.5 mls @ 100 mls/hr IV Q6H PRN PRN Reason: Nausea/Vomiting Lorazepam (Ativan) 1 mg IV Q6H PRN PRN Reason: Anxiety Last Admin: 06/27/17 09:20 Dose: 1 mg Magnesium Sulfate (Pharmacy To Dose - Magnesium Replacement) 0 dose .XX ASDIRECTED PRN PRN Reason: RX TO MONITOR MAG LEVELS Metoprolol Tartrate (Lopressor) 5 mg IVPUSH Q4H PRN PRN Reason: Tachycardia Ondansetron HCl (Zofran) 4 mg IV Q6H PRN PRN Reason: Nausea/Vomiting Oxycodone HCl (Oxycodone) 5 mg PO Q4H PRN PRN Reason: Pain (moderate 4-6) Last Admin: 06/27/17 06:13 Dose: 5 mg Potassium Chloride (Pharmacy To Dose - Potassium Replacement) 0 dose .XX ASDIRECTED PRN PRN Reason: RX TO MONITOR K LEVELS Propranolol HCl (Inderal La) 80 mg PO DAILY [facility] Last Admin: 06/27/17 09:21 Dose: 80 mg Sodium Chloride (Saline Flush) 10 ml FLUSH ASDIRECTED PRN PRN Reason: Keep Vein Open Last Admin: 06/26/17 20:44 Dose: 10 ml Temazepam (Restoril) 15 mg PO BEDTIME PRN PRN Reason: Sleep Discontinued Medications Acetaminophen (Tylenol) 975 mg PO NOW ONE Stop: 06/26/17 20:19 Last Admin: 06/26/17 20:46 Dose: 975 mg Dexamethasone (Dexamethasone) 4 mg IVPUSH ONETIME ONE Stop: 06/27/17 01:06 Last Admin: 06/27/17 01:33 Dose: 4 mg Diatrizoate Meglum/Diatrizoate Sod (Gastrografin 37%) 90 ml PO ONETIME ONE Stop: 06/26/17 22:34 Last Admin: 06/26/17 22:34 Dose: 90 ml Diphenhydramine HCl (Benadryl) 50 mg IVPUSH ONETIME ONE Stop: 06/27/17 00:31 Last Admin: 06/27/17 00:56 Dose: 50 mg Hydromorphone HCl (Dilaudid) 1 mg IVPUSH ONETIME ONE Stop: 06/26/17 20:19 Last Admin: 06/26/17 20:40 Dose: 1 mg Hydromorphone HCl (Dilaudid) 1 mg IVPUSH ONETIME ONE Stop: 06/27/17 00:05 Last Admin: 06/27/17 00:45 Dose: 1 mg Piperacillin Sod/Tazobactam (Sod 4.5 gm/ Sodium Chloride) 100 mls @ 200 mls/hr IV ONETIME ONE Stop: 06/26/17 20:47 Last Admin: 06/27/17 01:27 Dose: 200 mls/hr Sodium Chloride (Normal Saline) 2,000 mls @ 999 mls/hr IV ONETIME ONE Stop: 06/26/17 22:19 Last Admin: 06/26/17 20:38 Dose: 999 mls/hr Ceftriaxone Sodium 2 gm/ (Sodium Chloride) 100 mls @ 200 mls/hr IV Q24H ONE Stop: 06/26/17 20:47 Last Admin: 06/26/17 20:44 Dose: Not Given Ceftriaxone Sodium 2 gm/ (Sodium Chloride) 100 mls @ 200 mls/hr IV ONETIME ONE Stop: 06/26/17 20:47 Last Admin: 06/27/17 00:41 Dose: 200 mls/hr Sodium Chloride (Normal Saline) Confirm Administered Dose 100 mls @ as directed .ROUTE .STK-MED ONE Stop: 06/26/17 20:38 Last Admin: 06/26/17 20:41 Dose: Not Given Sodium Chloride (Normal Saline) 1,000 mls @ 999 mls/hr IV ONETIME ONE Stop: 06/26/17 23:57 Last Admin: 08/02/17 23:06 Dose: 999 mls/hr Ceftriaxone Sodium 1 gm/ (Sodium Chloride) 100 mls @ 200 mls/hr IV Q24H YANELI Iopamidol (Isovue-300 (61%)) 125 ml IVPUSH ONETIME ONE Stop: 06/26/17 22:34 Last Admin: 06/26/17 22:35 Dose: 125 ml Metoclopramide HCl (Reglan) 5 mg IVPUSH ONETIME ONE Stop: 06/27/17 00:49 Last Admin: 06/27/17 01:31 Dose: 5 mg Ondansetron HCl (Zofran) 4 mg IVPUSH ONETIME ONE Stop: 06/26/17 20:19 Last Admin: 06/26/17 20:39 Dose: 4 mg Pantoprazole Sodium (Protonix Iv) 40 mg IVPUSH ONETIME ONE Stop: 06/27/17 00:35 Last Admin: 06/27/17 00:56 Dose: 40 mg Pneumococcal Polyvalent Vaccine (Pneumovax 23) 0.5 ml IM .ONCE ONE Stop: 06/27/17 01:30 Sumatriptan Succinate (Imitrex) 6 mg SUBCUT ONETIME ONE Stop: 06/27/17 00:49 Last Admin: 06/27/17 01:30 Dose: Not Given Temazepam (Restoril) 30 mg PO BEDTIME ONE Stop: 06/27/17 00:30 Last Admin: 06/27/17 00:56 Dose: 30 mg Topiramate (Topamax) 25 mg PO BEDTIME ONE Stop: 06/27/17 00:44 Last Admin: 06/27/17 01:32 Dose: Not Given Topiramate (Topamax) 25 mg PO BEDTIME YANELI Consult PN Assessment/Plan Procedures: Procedures APPLICATION LOWER LEG SPLINT (05/11/17) EMERGENCY DEPT VISIT (05/11/17) X-RAY EXAM OF ANKLE (05/11/17) X-RAY EXAM OF FOOT (05/11/17) X-RAY EXAM OF LOWER LEG (05/11/17) Problem List Initiated/Reviewed/Updated: Yes Plan: surgical consult dictated PRAVEEN
--- NOTE | 2017-06-27 11:23 | PCM.PN ---
- General Info Date of Service: 06/27/17 Admission Dx/Problem (Free Text): Abdominal Pain Subjective Update: Follow up Functional Status: Reports: Pain Controlled, Ambulating, Urinating, New Symptoms - Review of Systems General: Denies: Fever, Weakness, Fatigue, Chills HEENT: Reports: No Symptoms. Denies: Visual Changes Pulmonary: Denies: Shortness of Breath Cardiovascular: Denies: Chest Pain, Palpitations, Dyspnea on Exertion Gastrointestinal: Reports: Abdominal Pain (better), Diarrhea (watery x 4 this am ). Denies: Nausea, Vomiting Genitourinary: Reports: No Symptoms Musculoskeletal: Reports: No Symptoms Skin: Reports: Jaundice. Denies: Cyanosis, Pallor, Rash Neurological: Denies: Confusion, Difficulty Walking, Weakness, Gait Disturbance Psychiatric: Denies: Depression, Anxiety, Hallucinations, Suicidal Ideation, Homicidal Ideation Systems Review Comment:: No overnight or acute issues. He is doing much better. His BYRNES is better and now able to tolerate lights. His LFTS are improving as well. Consulted Dr. Tejeda for further help. - Patient Data Vitals - Most Recent: Last Vital Signs Temp 36.2 C 06/27/17 07:45 Pulse 54 L 06/27/17 07:45 Resp 12 06/27/17 07:45 BP 103/59 L 06/27/17 07:45 Pulse Ox 95 06/27/17 07:45 Weight - Most Recent: 105.415 kg I&O - Last 24 Hours: Intake & Output 06/26/17 06/27/17 06/27/17 22:59 06:59 14:59 Intake Total 1425 Output Total 400 Balance 1025 Lab Results Last 24 Hours: Laboratory Results - last 24 hr 06/27/17 06/27/17 06/27/17 Range/Units 00:44 00:45 00:45 WBC (4.23-9.07) K/mm3 RBC (4.63-6.08) M/mm3 Hgb (13.7-17.5) gm/L Hct (40.1-51.0) % MCV (79.0-92.2) fl MCH (25.7-32.2) pg MCHC (32.2-35.5) g/dl RDW Std Deviation (35.1-43.9) fL Plt Count (163-337) K/mm3 MPV (9.4-12.3) fl Neut % (Auto) (34.0-67.9) % Lymph % (Auto) (21.8-53.1) % [place] % (Auto) (5.3-12.2) % Eos % (Auto) (0.8-7.0) Baso % (Auto) (0.1-1.2) % Neut # (Auto) (1.78-5.38) K/mm3 Lymph # (Auto) (1.32-3.57) K/mm3 [place] # (Auto) (0.30-0.82) K/mm3 Eos # (Auto) (0.04-0.54) K/mm3 Baso # (Auto) (0.01-0.08) K/mm3 Manual Slide Review Sodium (136-145) mEq/L Potassium (3.5-5.1) mEq/L Chloride (98-107) mEq/L Carbon Dioxide (21-32) mEq/L Anion Gap (5-15) BUN (7-18) mg/dL Creatinine (0.7-1.3) mg/dL Est Cr Clr Drug Dosing mL/min Estimated GFR (MDRD) (>60) mL/min BUN/Creatinine Ratio (14-18) Glucose (74-106) mg/dL Calcium (8.5-10.1) mg/dL Magnesium (1.8-2.4) mg/dl Total Bilirubin (0.2-1.0) mg/dL AST (15-37) U/L ALT (16-63) U/L Alkaline Phosphatase (46-116) U/L C-Reactive Protein (<1.0) mg/dL Total Protein (6.4-8.2) g/dl Albumin (3.4-5.0) g/dl Globulin gm/dL Albumin/Globulin Ratio (1-2) Urine Color [place] H (Yellow) Urine Appearance Slt cloudy H (Clear) Urine pH 6.0 (5.0-8.0) Ur Specific [place] 1.015 (1.005-1.030) Urine Protein 1+ H (Negative) Urine Glucose (UA) Negative (Negative) Urine Ketones Trace H (Negative) Urine Occult Blood Negative (Negative) Urine Nitrite Negative (Negative) Urine Bilirubin 2+ H (Negative) Urine Urobilinogen >=8.0 H (0.2-1.0) Ur Leukocyte Esterase Negative (Negative) Urine RBC Not seen (0-5) /hpf Urine WBC Not seen (0-5) /hpf Ur Epithelial Cells 0-5 (0-5) /hpf Urine Bacteria Few (FEW) /hpf Urine Mucus Not seen (FEW) /hpf Urine Yeast Not seen (NOT SEEN) Urine Opiates Screen Presumptive positive H (NEGATIVE) Ur Buprenorphine Scrn Negative (NEGATIVE) Ur Oxycodone Screen Negative (NEGATIVE) Urine Methadone Screen Negative (NEGATIVE) Ur Propoxyphene Screen Negative (NEGATIVE) Ur Barbiturates Screen Negative (NEGATIVE) Ur Tricyclics Screen Negative (NEGATIVE) Ur Phencyclidine Scrn Negative (NEGATIVE) Ur Amphetamine Screen Negative (NEGATIVE) U Methamphetamines Scrn Negative (NEGATIVE) U Benzodiazepines Scrn Negative (NEGATIVE) U Cocaine Metab Screen Negative (NEGATIVE) U Marijuana (THC) Screen Negative (NEGATIVE) C trachomatis DNA (PCR) Not detected N gonorrhoeae DNA (PCR) Not detected 06/27/17 06/27/17 Range/Units 05:30 05:30 WBC 5.39 (4.23-9.07) K/mm3 RBC 4.16 L (4.63-6.08) M/mm3 Hgb 13.3 L (13.7-17.5) gm/L Hct 37.4 L (40.1-51.0) % MCV 89.9 (79.0-92.2) fl MCH 32.0 (25.7-32.2) pg MCHC 35.6 H (32.2-35.5) g/dl RDW Std Deviation 42.9 (35.1-43.9) fL Plt Count 130 L (163-337) K/mm3 MPV 9.5 (9.4-12.3) fl Neut % (Auto) 87.9 H (34.0-67.9) % Lymph % (Auto) 4.5 L (21.8-53.1) % [place] % (Auto) 5.9 (5.3-12.2) % Eos % (Auto) 1.3 (0.8-7.0) Baso % (Auto) 0.2 (0.1-1.2) % Neut # (Auto) 4.74 (1.78-5.38) K/mm3 Lymph # (Auto) 0.24 L (1.32-3.57) K/mm3 [place] # (Auto) 0.32 (0.30-0.82) K/mm3 Eos # (Auto) 0.07 (0.04-0.54) K/mm3 Baso # (Auto) 0.01 (0.01-0.08) K/mm3 Manual Slide Review Abnormal smear Sodium 136 (136-145) mEq/L Potassium 4.4 (3.5-5.1) mEq/L Chloride 104 (98-107) mEq/L Carbon Dioxide 23 (21-32) mEq/L Anion Gap 13.4 (5-15) BUN 12 (7-18) mg/dL Creatinine 1.0 (0.7-1.3) mg/dL Est Cr Clr Drug Dosing 110.51 mL/min Estimated GFR (MDRD) > 60 (>60) mL/min BUN/Creatinine Ratio 12.0 L (14-18) Glucose 115 H (74-106) mg/dL Calcium 7.5 L (8.5-10.1) mg/dL Magnesium 2.0 (1.8-2.4) mg/dl Total Bilirubin 5.7 H (0.2-1.0) mg/dL AST 497 H (15-37) U/L ALT 533 H (16-63) U/L Alkaline Phosphatase 132 H (46-116) U/L C-Reactive Protein 7.4 H* (<1.0) mg/dL Total Protein 6.7 (6.4-8.2) g/dl Albumin 3.4 (3.4-5.0) g/dl Globulin 3.3 gm/dL Albumin/Globulin Ratio 1.0 (1-2) Urine Color (Yellow) Urine Appearance (Clear) Urine pH (5.0-8.0) Ur Specific [place] (1.005-1.030) Urine Protein (Negative) Urine Glucose (UA) (Negative) Urine Ketones (Negative) Urine Occult Blood (Negative) Urine Nitrite (Negative) Urine Bilirubin (Negative) Urine Urobilinogen (0.2-1.0) Ur Leukocyte Esterase (Negative) Urine RBC (0-5) /hpf Urine WBC (0-5) /hpf Ur Epithelial Cells (0-5) /hpf Urine Bacteria (FEW) /hpf Urine Mucus (FEW) /hpf Urine Yeast (NOT SEEN) Urine Opiates Screen (NEGATIVE) Ur Buprenorphine Scrn (NEGATIVE) Ur Oxycodone Screen (NEGATIVE) Urine Methadone Screen (NEGATIVE) Ur Propoxyphene Screen (NEGATIVE) Ur Barbiturates Screen (NEGATIVE) Ur Tricyclics Screen (NEGATIVE) Ur Phencyclidine Scrn (NEGATIVE) Ur Amphetamine Screen (NEGATIVE) U Methamphetamines Scrn (NEGATIVE) U Benzodiazepines Scrn (NEGATIVE) U Cocaine Metab Screen (NEGATIVE) U Marijuana (THC) Screen (NEGATIVE) C trachomatis DNA (PCR) N gonorrhoeae DNA (PCR) Med Orders - Current: Current Medications Acetaminophen/Butalbital/Caffeine (Fioricet 325-50-40 Mg) 2 tab PO Q6H PRN PRN Reason: Headache Last Admin: 06/27/17 06:13 Dose: 2 tab Albuterol/Ipratropium (Duoneb 3.0-0.5 Mg/3 Ml) 3 ml NEB Q4H PRN PRN Reason: Shortness Of Breath/wheezing Famotidine (Pepcid) 20 mg IVPUSH BID [facility] Last Admin: 06/27/17 09:20 Dose: 20 mg Hydralazine HCl (Apresoline) 20 mg IVPUSH Q4H PRN PRN Reason: Hypertension Hydromorphone HCl (Dilaudid) 1 mg IVPUSH Q4H PRN PRN Reason: Pain (severe 7-10) Sodium Chloride (Normal Saline) 1,000 mls @ 250 mls/hr IV ASDIRECTED [facility] Last Admin: 06/27/17 09:23 Dose: 250 mls/hr Promethazine HCl 12.5 mg/ (Sodium Chloride) 50.5 mls @ 100 mls/hr IV Q6H PRN PRN Reason: Nausea/Vomiting Lorazepam (Ativan) 1 mg IV Q6H PRN PRN Reason: Anxiety Last Admin: 06/27/17 09:20 Dose: 1 mg Magnesium Sulfate (Pharmacy To Dose - Magnesium Replacement) 0 dose .XX ASDIRECTED PRN PRN Reason: RX TO MONITOR MAG LEVELS Metoprolol Tartrate (Lopressor) 5 mg IVPUSH Q4H PRN PRN Reason: Tachycardia Ondansetron HCl (Zofran) 4 mg IV Q6H PRN PRN Reason: Nausea/Vomiting Oxycodone HCl (Oxycodone) 5 mg PO Q4H PRN PRN Reason: Pain (moderate 4-6) Last Admin: 06/27/17 06:13 Dose: 5 mg Potassium Chloride (Pharmacy To Dose - Potassium Replacement) 0 dose .XX ASDIRECTED PRN PRN Reason: RX TO MONITOR K LEVELS Propranolol HCl (Inderal La) 80 mg PO DAILY YANELI Last Admin: 06/27/17 09:21 Dose: 80 mg Sodium Chloride (Saline Flush) 10 ml FLUSH ASDIRECTED PRN PRN Reason: Keep Vein Open Last Admin: 06/26/17 20:44 Dose: 10 ml Temazepam (Restoril) 15 mg PO BEDTIME PRN PRN Reason: Sleep Discontinued Medications Acetaminophen (Tylenol) 975 mg PO NOW ONE Stop: 06/26/17 20:19 Last Admin: 06/26/17 20:46 Dose: 975 mg Dexamethasone (Dexamethasone) 4 mg IVPUSH ONETIME ONE Stop: 06/27/17 01:06 Last Admin: 06/27/17 01:33 Dose: 4 mg Diatrizoate Meglum/Diatrizoate Sod (Gastrografin 37%) 90 ml PO ONETIME ONE Stop: 06/26/17 22:34 Last Admin: 06/26/17 22:34 Dose: 90 ml Diphenhydramine HCl (Benadryl) 50 mg IVPUSH ONETIME ONE Stop: 06/27/17 00:31 Last Admin: 06/27/17 00:56 Dose: 50 mg Hydromorphone HCl (Dilaudid) 1 mg IVPUSH ONETIME ONE Stop: 06/26/17 20:19 Last Admin: 06/26/17 20:40 Dose: 1 mg Hydromorphone HCl (Dilaudid) 1 mg IVPUSH ONETIME ONE Stop: 06/27/17 00:05 Last Admin: 06/27/17 00:45 Dose: 1 mg Piperacillin Sod/Tazobactam (Sod 4.5 gm/ Sodium Chloride) 100 mls @ 200 mls/hr IV ONETIME ONE Stop: 06/26/17 20:47 Last Admin: 06/27/17 01:27 Dose: 200 mls/hr Sodium Chloride (Normal Saline) 2,000 mls @ 999 mls/hr IV ONETIME ONE Stop: 06/26/17 22:19 Last Admin: 06/26/17 20:38 Dose: 999 mls/hr Ceftriaxone Sodium 2 gm/ (Sodium Chloride) 100 mls @ 200 mls/hr IV Q24H ONE Stop: 06/26/17 20:47 Last Admin: 06/26/17 20:44 Dose: Not Given Ceftriaxone Sodium 2 gm/ (Sodium Chloride) 100 mls @ 200 mls/hr IV ONETIME ONE Stop: 06/26/17 20:47 Last Admin: 06/27/17 00:41 Dose: 200 mls/hr Sodium Chloride (Normal Saline) Confirm Administered Dose 100 mls @ as directed .ROUTE .STK-MED ONE Stop: 06/26/17 20:38 Last Admin: 06/26/17 20:41 Dose: Not Given Sodium Chloride (Normal Saline) 1,000 mls @ 999 mls/hr IV ONETIME ONE Stop: 06/26/17 23:57 Last Admin: 06/26/17 23:06 Dose: 999 mls/hr Ceftriaxone Sodium 1 gm/ (Sodium Chloride) 100 mls @ 200 mls/hr IV Q24H YANELI Iopamidol (Isovue-300 (61%)) 125 ml IVPUSH ONETIME ONE Stop: 06/26/17 22:34 Last Admin: 06/26/17 22:35 Dose: 125 ml Metoclopramide HCl (Reglan) 5 mg IVPUSH ONETIME ONE Stop: 06/27/17 00:49 Last Admin: 06/27/17 01:31 Dose: 5 mg Ondansetron HCl (Zofran) 4 mg IVPUSH ONETIME ONE Stop: 06/26/17 20:19 Last Admin: 06/26/17 20:39 Dose: 4 mg Pantoprazole Sodium (Protonix Iv) 40 mg IVPUSH ONETIME ONE Stop: 06/27/17 00:35 Last Admin: 06/27/17 00:56 Dose: 40 mg Pneumococcal Polyvalent Vaccine (Pneumovax 23) 0.5 ml IM .ONCE ONE Stop: 06/27/17 01:30 Sumatriptan Succinate (Imitrex) 6 mg SUBCUT ONETIME ONE Stop: 06/27/17 00:49 Last Admin: 06/27/17 01:30 Dose: Not Given Temazepam (Restoril) 30 mg PO BEDTIME ONE Stop: 06/27/17 00:30 Last Admin: 06/27/17 00:56 Dose: 30 mg Topiramate (Topamax) 25 mg PO BEDTIME ONE Stop: 06/27/17 00:44 Last Admin: 06/27/17 01:32 Dose: Not Given Topiramate (Topamax) 25 mg PO BEDTIME YANELI - Exam General: Alert, Oriented, Cooperative, No Acute Distress HEENT: Pupils Equal, Pupils Reactive, EOMI, Mucous Membr. Moist/[place]. No: Scleral Icterus Neck: Supple, Trachea Midline, No JVD Lungs: Clear to Auscultation, Normal Respiratory Effort Cardiovascular: Regular Rate, Regular Rhythm GI/Abdominal Exam: Normal Bowel Sounds, Soft, No Organomegaly, No Distention, No Abnormal Bruit, No Mass, Tender (RUQ). No: Distended, Guarding, Rigid, Rebound, Hepatomegaly, Splenomegaly (Male) Exam: Deferred Back Exam: Normal Inspection, Decreased Range of Motion Extremities: Normal Inspection, Normal Range of Motion, Non-Tender, No Pedal Edema, Normal Capillary Refill Peripheral Pulses: 3+: Posterior Tibial (L), Posterior Tibial (R), Dorsalis Pedis (L), Dorsalis Pedis (R) Skin: Warm, Dry, Intact, Other (Jaundice) Neurological: No New Focal Deficit Psy/Mental Status: Alert, Normal Affect, Suicidal Ideation - Problem List Review Problem List Initiated/Reviewed/Updated: Yes - My Orders Last 24 Hours: My Active Orders 06/27/17 00:19 Acetaminophen/Butalbital/Caff [Fioricet 325-50-40 MG] 2 tab PO Q6H PRN 06/27/17 00:30 Sodium Chloride 0.9% [Normal Saline] 1,000 ml IV ASDIRECTED 06/27/17 00:31 Height and Weight [RC] 04 Oxygen Therapy [RC] PRN Up With Assistance [RC] ASDIRECTED Up ad Jenny [RC] ASDIRECTED VTE/DVT Education [RC] BID Vital Signs [RC] Q4H HYDROmorphone [Dilaudid] 1 mg IVPUSH Q4H PRN LORazepam [Ativan] 1 mg IV Q6H PRN Ondansetron [Zofran] 4 mg IV Q6H PRN Promethazine [Phenergan] 12.5 mg Sodium Chloride 0.9% [Normal Saline] 50 ml IV Q6H oxyCODONE 5 mg PO Q4H PRN Resuscitation Status Routine 06/27/17 00:32 Intake and Output [RC] 04,16 06/27/17 00:33 Antiembolic Devices [RC] BID Sequential Compression Device [OM.PC] Per Unit Routine 06/27/17 00:34 Albuterol/Ipratropium [DuoNeb 3.0-0.5 MG/3 ML] 3 ml NEB Q4H PRN 06/27/17 00:35 RT Aerosol Therapy [RC] ASDIRECTED Consult to Case Management [CONS] Routine Consult to General Teller [CONS] Routine 06/27/17 00:37 Metoprolol Tartrate [Lopressor] 5 mg IVPUSH Q4H PRN hydrALAZINE [Apresoline] 20 mg IVPUSH Q4H PRN 06/27/17 00:45 Magnesium Rep Pharmacy to Dose [Pharmacy to Dose - Magnesium Replacement] 0 dose .XX ASDIRECTED PRN Potassium Rep Pharmacy to Dose [Pharmacy to Dose - Potassium Replacement] 0 dose .XX ASDIRECTED PRN 06/27/17 01:00 Temazepam [Restoril] 15 mg PO BEDTIME PRN 06/27/17 09:00 Famotidine [Pepcid] 20 mg IVPUSH BID Propranolol [Inderal LA] 80 mg PO DAILY 06/27/17 10:00 Abdomen Ltd [US] Routine 06/27/17 10:14 Consult to Physician [CONS] Routine 06/27/17 10:15 Notify Provider Consults [RC] ASDIRECTED 06/27/17 Breakfast Nothing per Oral Now Diet [DIET] 06/28/17 05:11 C-REACTIVE PROTEIN [CHEM] AM CBC WITH AUTO DIFF [HEME] AM COMPREHENSIVE METABOLIC PN,CMP [CHEM] AM MAGNESIUM [CHEM] AM 06/29/17 05:11 C-REACTIVE PROTEIN [CHEM] AM CBC WITH AUTO DIFF [HEME] AM COMPREHENSIVE METABOLIC PN,CMP [CHEM] AM MAGNESIUM [CHEM] AM 06/30/17 05:11 C-REACTIVE PROTEIN [CHEM] AM CBC WITH AUTO DIFF [HEME] AM COMPREHENSIVE METABOLIC PN,CMP [CHEM] AM MAGNESIUM [CHEM] AM 07/01/17 05:11 C-REACTIVE PROTEIN [CHEM] AM CBC WITH AUTO DIFF [HEME] AM COMPREHENSIVE METABOLIC PN,CMP [CHEM] AM MAGNESIUM [CHEM] AM - Plan Plan:: Assessment/Plan: Acute: Abdominal Pain, Improved - Likely 2/2 Hepato-Biliary Disease - Elevated LE and GGT - Non-Alcoholic - Treat Underlying cause - UA is not suggestive of UTI Hepato-Biliary Disease, LFTs improving - Infection vs Auto-immune - CT scan per V-rad: Diffuse Fatty Liver Disease - Cannot r/o Acute Hepatitis - He denies recent rapid weight loss - Risk factor: In relationship with someone who is infected with hepatitis - Hepatitis Panel ordered in ED - DDx: Cholangitis, Cirrhosis, Malignancy, Auto-immune, Drugs/Toxins, Strictures of Bile Ducts, Parasites (unlikely eosinophils are low) Jaundice/Hyperbilubinemia, Improving - Hepatic vs Post Hepatic: Suspect Hepatic due to Diffuse Fatty Liver - Urobilinogen >=8 - Urine Bili 2+, Direct Bili 1.5 and Total Bili 4.8 - RB is normal and no hx/o blood cell disorders (Rule out Pre-hepatic) - Awaiting U/S for this am to be completed Migraine BYRNES, Improved - Photophobia and Tension at the back of his neck - IV Reglan + Sumatriptan and Steroid for immediate relief - IV Benadryl to help with sleep - Topamax +/- BB for maintenance Diffuse Fatty Liver Disease per CT scan V-rad report - Monitor for acute hepatic failure - He has been taking a lot of Tylenol lately due to Migraine HAs - IV hydration and supportive Care - Dietary consult Resolved: S/p Hematuria and Dysuria - UA result noted for markedly elevated Bilirubin and Urobilinogen - Still sexually active with his partner only - STD panel ordered in ED: negcative GC/NG - Already received IV Zosyn and Rocephin in ED - Discontinue Abx Plan: Patient looks clinically much better Continue current treatment Routine AM Labs Viral Panel pending GS consult with Dr. Ileana HUTCHINS/CM for d/c planning
--- NOTE | 2017-06-27 11:28 | US ---
Limited abdominal ultrasound: Multiple real-time images of the upper right abdomen were obtained. Comparison: Previous abdominal and pelvic CT exam of 06/26/17. Liver is slightly echogenic suspicious for mild fatty infiltration. There appears to be mild focal fatty sparing near the gallbladder. Gallbladder shows no gallstones. No gallbladder wall thickening or biliary duct dilatation is seen. Right kidney shows no hydronephrosis or mass and has a length of 11.3 cm. Pancreas is incompletely seen. Visualized portions of the pancreas are within normal limits. Impression: 1. Slight fatty infiltration within the liver felt to be present. Mild focal fatty sparing near the gallbladder is noted. 2. No additional abnormality is identified on right upper quadrant abdominal ultrasound exam. Diagnostic code #3
[2017-06-27] MEDS: HYDROmorphone 1 MG/ML Syringe IVPUSH PRN ×3 (11:58→20:32)
[2017-06-27] MEDS ORDERED: Sodium Chloride 0.9% 100 ML IV SCH (15:45)
[2017-06-27] MEDS ORDERED: cefTRIAXone 1 GM in Sodium Chloride 0.9% 100 ML IV SCH (20:00)
[2017-06-27] MEDS ORDERED: Topiramate 25 MG Tab PO SCH (21:00)
[2017-06-27] MEDS: Dextrose 5%-0.9% NaCl 1,000 ML IV SCH (22:40)
[2017-06-28] MEDS: oxyCODONE 5 MG Tab PO PRN (04:34)
[2017-06-28] MEDS: Acetaminophen/Butalbital/Caffeine 325-50-40 MG Tab PO PRN (04:34)
[2017-06-28] MEDS: HYDROmorphone 1 MG/ML Syringe IVPUSH PRN ×4 (04:35→20:09)
[2017-06-28] MEDS ORDERED: Acetaminophen 325 MG Tab PO PRN (04:50)
--- NOTE | 2017-06-28 07:39 | CONS ---
CONSULTING PHYSICIAN: Erik Tejeda MD DATE OF CONSULTATION: 06/27/2017 PERTINENT HISTORY: A 31-year-old who came in through the emergency room on 06/26/2017. He was complaining of migraine; being hot, cold and feverish; poor appetite; abdominal pain that started yesterday about 4:30. The pain was located in the periumbilical region. His abdomen felt tight. He had sensitivity to light and noise. No diarrhea. He was noted to have an elevated bilirubin of 4.8 with elevated alkaline phosphatase of 152, AST was 497, and ALT was 152. Hepatitis screening was ordered and as far as I can see, it is pending. The patient was felt a sepsis protocol and was started on antibiotics. His spouse was incarcerated, had tattoos, and had hepatitis C. PAST SURGICAL HISTORY: Fracture of leg. PAST MEDICAL HISTORY: Good health. SOCIAL HISTORY: He is an everyday smoker. Drug use, not known. REVIEW OF SYSTEMS: CONSTITUTIONAL: He does have fever, chills, weakness, a little shortness of breath, wheezing, and headache. No palpitations or syncope. GI: Has no diarrhea. : No symptoms. MUSCULOSKELETAL: Just generalized aches and pains. LABORATORY DATA: Reviewed. MEDICATIONS: None. PHYSICAL EXAMINATION: GENERAL: Reveals a patient in moderate distress. Complaining of generalized aches and pains. EYES: Some icterus noted in eyes. ORAL CAVITY: Healthy. NECK: Supple. LUNGS: Clear. HEART: Tones regular rate. ABDOMEN: Shows tenderness in the right upper quadrant, broad areas, suspicious for some enlargement of the liver. NEUROLOGIC: Cranial nerves 2 through 12 intact. PSYCH: Normal. SKIN: Warm. RECTAL: Exam deferred. ASSESSMENT: Most likely, hepatitis is the cause of this patient's pain. Await the ultrasound and the hepatitis screen. MMODAL /[id number]
[2017-06-28] MEDS ORDERED: Magnesium Oxide 400 MG Tab PO ONE (08:00)
[2017-06-28] MEDS: Famotidine 20 MG/2 ML SDV IVPUSH SCH (08:07)
[2017-06-28] MEDS: Propranolol 80 MG Cap.ER PO SCH (08:08)
[2017-06-28] MEDS: Dextrose 5%-0.9% NaCl 1,000 ML IV SCH ×2 (10:31→18:39)
[2017-06-28] MEDS: Ibuprofen 800 MG Tab PO PRN ×2 (12:55→20:10)
--- NOTE | 2017-06-28 13:34 | PCM.PN ---
- General Info Date of Service: 06/28/17 Admission Dx/Problem (Free Text): Abdominal Pain Functional Status: Reports: Pain Controlled, Tolerating Diet (tolerated clear liquid diet---will advance to full for lunch), Ambulating, Urinating - Review of Systems General: Reports: Fever, Weakness, Fatigue HEENT: Reports: No Symptoms Pulmonary: Reports: No Symptoms Cardiovascular: Reports: No Symptoms Gastrointestinal: Reports: Abdominal Pain, Nausea. Denies: Vomiting Genitourinary: Reports: No Symptoms. Denies: Dysuria (resolved) Neurological: Reports: No Symptoms Psychiatric: Reports: No Symptoms - Patient Data Vitals - Most Recent: Last Vital Signs Temp 101.3 F H 06/28/17 12:55 Pulse 80 06/28/17 12:34 Resp 16 06/28/17 12:44 BP 107/68 06/28/17 12:34 Pulse Ox 98 06/28/17 12:34 Weight - Most Recent: 232 lb 12.8 oz I&O - Last 24 Hours: Intake & Output 06/27/17 06/28/17 06/28/17 22:59 06:59 14:59 Intake Total 2582 2700 300 Output Total 300 Balance 2282 2700 300 Lab Results Last 24 Hours: Laboratory Results - last 24 hr 06/28/17 06/28/17 Range/Units 05:50 05:50 WBC 4.49 (4.23-9.07) K/mm3 RBC 4.02 L (4.63-6.08) M/mm3 Hgb 13.0 L (13.7-17.5) gm/L Hct 36.2 L (40.1-51.0) % MCV 90.0 (79.0-92.2) fl MCH 32.3 H (25.7-32.2) pg MCHC 35.9 H (32.2-35.5) g/dl RDW Std Deviation 42.8 (35.1-43.9) fL Plt Count 123 L (163-337) K/mm3 MPV 10.1 (9.4-12.3) fl Neut % (Auto) 70.2 H (34.0-67.9) % Lymph % (Auto) 16.7 L (21.8-53.1) % [place] % (Auto) 8.0 (5.3-12.2) % Eos % (Auto) 3.8 (0.8-7.0) Baso % (Auto) 1.1 (0.1-1.2) % Neut # (Auto) 3.15 (1.78-5.38) K/mm3 Lymph # (Auto) 0.75 L (1.32-3.57) K/mm3 [place] # (Auto) 0.36 (0.30-0.82) K/mm3 Eos # (Auto) 0.17 (0.04-0.54) K/mm3 Baso # (Auto) 0.05 (0.01-0.08) K/mm3 Manual Slide Review Normal smear Sodium 134 L (136-145) mEq/L Potassium 3.6 (3.5-5.1) mEq/L Chloride 102 (98-107) mEq/L Carbon Dioxide 24 (21-32) mEq/L Anion Gap 11.6 (5-15) BUN 12 (7-18) mg/dL Creatinine 1.3 (0.7-1.3) mg/dL Est Cr Clr Drug Dosing 85.01 mL/min Estimated GFR (MDRD) > 60 (>60) mL/min BUN/Creatinine Ratio 9.2 L (14-18) Glucose 106 (74-106) mg/dL Calcium 8.1 L (8.5-10.1) mg/dL Magnesium 1.8 (1.8-2.4) mg/dl Total Bilirubin 5.0 H (0.2-1.0) mg/dL AST 1097 H (15-37) U/L ALT 1139 H (16-63) U/L Alkaline Phosphatase 116 (46-116) U/L C-Reactive Protein 6.3 H* (<1.0) mg/dL Total Protein 6.4 (6.4-8.2) g/dl Albumin 3.2 L (3.4-5.0) g/dl Globulin 3.2 gm/dL Albumin/Globulin Ratio 1.0 (1-2) Raffi Results Last 24 Hours: Microbiology 06/27/17 00:45 Urine Culture - Final Urine, Bladder MIXED PADMINI SUGGESTIVE OF CONTAMINATION. Med Orders - Current: Current Medications Albuterol/Ipratropium (Duoneb 3.0-0.5 Mg/3 Ml) 3 ml NEB Q4H PRN PRN Reason: Shortness Of Breath/wheezing Famotidine (Pepcid) 20 mg IVPUSH BID [facility] Last Admin: 06/28/17 08:07 Dose: 20 mg Hydralazine HCl (Apresoline) 20 mg IVPUSH Q4H PRN PRN Reason: Hypertension Hydromorphone HCl (Dilaudid) 1 mg IVPUSH Q4H PRN PRN Reason: Pain (severe 7-10) Last Admin: 06/28/17 12:56 Dose: 1 mg Promethazine HCl 12.5 mg/ (Sodium Chloride) 50.5 mls @ 100 mls/hr IV Q6H PRN PRN Reason: Nausea/Vomiting Dextrose/Sodium Chloride (Dextrose 5%-Normal Saline) 1,000 mls @ 125 mls/hr IV ASDIRECTED [facility] Last Admin: 06/28/17 10:31 Dose: 125 mls/hr Ibuprofen (Motrin) 800 mg PO Q6H PRN PRN Reason: Fever Last Admin: 06/28/17 12:55 Dose: 800 mg Lorazepam (Ativan) 1 mg IV Q6H PRN PRN Reason: Anxiety Last Admin: 06/27/17 09:20 Dose: 1 mg Magnesium Sulfate (Pharmacy To Dose - Magnesium Replacement) 0 dose .XX ASDIRECTED PRN PRN Reason: RX TO MONITOR MAG LEVELS Metoprolol Tartrate (Lopressor) 5 mg IVPUSH Q4H PRN PRN Reason: Tachycardia Ondansetron HCl (Zofran) 4 mg IV Q6H PRN PRN Reason: Nausea/Vomiting Potassium Chloride (Pharmacy To Dose - Potassium Replacement) 0 dose .XX ASDIRECTED PRN PRN Reason: RX TO MONITOR K LEVELS Propranolol HCl (Inderal La) 80 mg PO DAILY [facility] Last Admin: 06/28/17 08:08 Dose: 80 mg Sodium Chloride (Saline Flush) 10 ml FLUSH ASDIRECTED PRN PRN Reason: Keep Vein Open Last Admin: 06/26/17 20:44 Dose: 10 ml Temazepam (Restoril) 15 mg PO BEDTIME PRN PRN Reason: Sleep Discontinued Medications Acetaminophen (Tylenol) 975 mg PO NOW ONE Stop: 06/26/17 20:19 Last Admin: 06/26/17 20:46 Dose: 975 mg Acetaminophen (Tylenol) 650 mg PO Q4H PRN PRN Reason: Fever Acetaminophen/Butalbital/Caffeine (Fioricet 325-50-40 Mg) 2 tab PO Q6H PRN PRN Reason: Headache Last Admin: 06/28/17 04:34 Dose: 2 tab Dexamethasone (Dexamethasone) 4 mg IVPUSH ONETIME ONE Stop: 06/27/17 01:06 Last Admin: 06/27/17 01:33 Dose: 4 mg Diatrizoate Meglum/Diatrizoate Sod (Gastrografin 37%) 90 ml PO ONETIME ONE Stop: 06/26/17 22:34 Last Admin: 06/26/17 22:34 Dose: 90 ml Diphenhydramine HCl (Benadryl) 50 mg IVPUSH ONETIME ONE Stop: 06/27/17 00:31 Last Admin: 06/27/17 00:56 Dose: 50 mg Hydromorphone HCl (Dilaudid) 1 mg IVPUSH ONETIME ONE Stop: 06/26/17 20:19 Last Admin: 06/26/17 20:40 Dose: 1 mg Hydromorphone HCl (Dilaudid) 1 mg IVPUSH ONETIME ONE Stop: 06/27/17 00:05 Last Admin: 06/27/17 00:45 Dose: 1 mg Piperacillin Sod/Tazobactam (Sod 4.5 gm/ Sodium Chloride) 100 mls @ 200 mls/hr IV ONETIME ONE Stop: 06/26/17 20:47 Last Admin: 06/27/17 01:27 Dose: 200 mls/hr Sodium Chloride (Normal Saline) 2,000 mls @ 999 mls/hr IV ONETIME ONE Stop: 06/26/17 22:19 Last Admin: 06/26/17 20:38 Dose: 999 mls/hr Ceftriaxone Sodium 2 gm/ (Sodium Chloride) 100 mls @ 200 mls/hr IV Q24H ONE Stop: 06/26/17 20:47 Last Admin: 06/26/17 20:44 Dose: Not Given Ceftriaxone Sodium 2 gm/ (Sodium Chloride) 100 mls @ 200 mls/hr IV ONETIME ONE Stop: 06/26/17 20:47 Last Admin: 06/27/17 00:41 Dose: 200 mls/hr Sodium Chloride (Normal Saline) Confirm Administered Dose 100 mls @ as directed .ROUTE .[facility]-MED ONE Stop: 06/26/17 20:38 Last Admin: 06/26/17 20:41 Dose: Not Given Sodium Chloride (Normal Saline) 1,000 mls @ 999 mls/hr IV ONETIME ONE Stop: 06/26/17 23:57 Last Admin: 06/26/17 23:06 Dose: 999 mls/hr Sodium Chloride (Normal Saline) 1,000 mls @ 250 mls/hr IV ASDIRECTED YANELI Last Admin: 06/27/17 14:53 Dose: 250 mls/hr Ceftriaxone Sodium 1 gm/ (Sodium Chloride) 100 mls @ 200 mls/hr IV Q24H YANELI Sodium Chloride (Normal Saline) 100 mls @ 125 mls/hr IV ASDIRECTED YANELI Iopamidol (Isovue-300 (61%)) 125 ml IVPUSH ONETIME ONE Stop: 06/26/17 22:34 Last Admin: 06/26/17 22:35 Dose: 125 ml Magnesium Oxide (Magnesium Oxide) 400 mg PO ONETIME ONE Stop: 06/28/17 08:01 Last Admin: 06/28/17 08:07 Dose: 400 mg Metoclopramide HCl (Reglan) 5 mg IVPUSH ONETIME ONE Stop: 06/27/17 00:49 Last Admin: 06/27/17 01:31 Dose: 5 mg Ondansetron HCl (Zofran) 4 mg IVPUSH ONETIME ONE Stop: 06/26/17 20:19 Last Admin: 06/26/17 20:39 Dose: 4 mg Oxycodone HCl (Oxycodone) 5 mg PO Q4H PRN PRN Reason: Pain (moderate 4-6) Last Admin: 06/28/17 04:34 Dose: 5 mg Pantoprazole Sodium (Protonix Iv) 40 mg IVPUSH ONETIME ONE Stop: 06/27/17 00:35 Last Admin: 06/27/17 00:56 Dose: 40 mg Pneumococcal Polyvalent Vaccine (Pneumovax 23) 0.5 ml IM .ONCE ONE Stop: 06/27/17 01:30 Sumatriptan Succinate (Imitrex) 6 mg SUBCUT ONETIME ONE Stop: 06/27/17 00:49 Last Admin: 06/27/17 01:30 Dose: Not Given Temazepam (Restoril) 30 mg PO BEDTIME ONE Stop: 06/27/17 00:30 Last Admin: 06/27/17 00:56 Dose: 30 mg Topiramate (Topamax) 25 mg PO BEDTIME ONE Stop: 06/27/17 00:44 Last Admin: 06/27/17 01:32 Dose: Not Given Topiramate (Topamax) 25 mg PO BEDTIME YANELI - Exam Quality Assessment: DVT Prophylaxis General: Alert, Oriented, Cooperative, No Acute Distress HEENT: Pupils Equal, Pupils Reactive, EOMI, Mucous Membr. Moist/[place], Scleral Icterus (mild) Neck: Supple Lungs: Clear to Auscultation, Normal Respiratory Effort, Decreased Breath Sounds (bases) Cardiovascular: Regular Rate, Regular Rhythm GI/Abdominal Exam: Normal Bowel Sounds, Soft, Distended (mild to moderate to upper abdomen), Tender (RUQ and LUQ; generalized upper abd pain), Hepatomegaly, Splenomegaly (Male) Exam: Deferred Extremities: Normal Inspection Peripheral Pulses: 2+: Dorsalis Pedis (L), Dorsalis Pedis (R) Skin: Warm, Dry, Other (mild jaundice) Neurological: No New Focal Deficit Psy/Mental Status: Alert, Normal Affect, Normal Mood - Problem List & Annotations (1) Transaminitis SNOMED Code(s): 230975111 Code(s): R74.0 - NONSPEC ELEV OF LEVELS OF TRANSAMNS & LACTIC ACID DEHYDRGNSE Status: Acute Priority: High Current Visit: Yes (2) Fever SNOMED Code(s): 023775141 Code(s): R50.9 - FEVER, UNSPECIFIED Status: Acute Priority: High Current Visit: Yes Qualifiers: Fever type: due to other condition Qualified Code(s): R50.81 - Fever presenting with conditions classified elsewhere (3) Abdominal pain in male SNOMED Code(s): 94999438 Code(s): R10.9 - UNSPECIFIED ABDOMINAL PAIN Status: Acute Priority: High Current Visit: Yes - Problem List Review Problem List Initiated/Reviewed/Updated: Yes - My Orders Last 24 Hours: My Active Orders 06/28/17 08:30 Isolation [COMM] Routine 06/28/17 11:46 AMMONIA VENOUS [CHEM] Routine 06/28/17 Lunch Full Liquid Diet [DIET] - Plan Plan:: Assessment/Plan: Acute: Abdominal Pain, Improved - Likely 2/2 Hepato-Biliary Disease - Elevated LE and GGT - Non-Alcoholic - Treat Underlying cause - UA is not suggestive of UTI Hepato-Biliary Disease, LFTs improving - Infection vs Auto-immune - CT scan per V-rad: Diffuse Fatty Liver Disease - Cannot r/o Acute Hepatitis--hepatitis panel pending (ordered in ED)- likely will not be back until next week as is a send out test - He denies recent rapid weight loss - Risk factor: In relationship with someone who is infected with hepatitis - DDx: Cholangitis, Cirrhosis, Malignancy, Auto-immune, Drugs/Toxins, Strictures of Bile Ducts, Parasites (unlikely eosinophils are low) Jaundice/Hyperbilubinemia, Improving - Hepatic vs Post Hepatic: Suspect Hepatic due to Diffuse Fatty Liver - Urobilinogen >=8 - Urine Bili 2+, Direct Bili 1.5 and Total Bili 4.8 - RB is normal and no hx/o blood cell disorders (Rule out Pre-hepatic) - Awaiting U/S for this am to be completed Migraine BYRNES, Improved - Photophobia and Tension at the back of his neck - IV Reglan + Sumatriptan and Steroid for immediate relief - IV Benadryl to help with sleep - Topamax and BB for maintenance - DC fioricet d/t APAP; NO APAP products due to LFT elevation Diffuse Fatty Liver Disease per CT scan V-rad report - Monitor for acute hepatic failure - He has been taking a lot of Tylenol lately due to Migraine HAs - IV hydration and supportive Care - Dietary consult Resolved: S/p Hematuria and Dysuria - UA result noted for markedly elevated Bilirubin and Urobilinogen - Still sexually active with his partner only - STD panel ordered in ED: negcative GC/NG - Already received IV Zosyn and Rocephin in ED - Discontinue Abx Plan: Continue current treatment- await hepatitis panel Routine AM Labs DVT/GI Prophylax Viral Panel pending as above GS consult with Dr. Tejeda SW/CM for d/c planning Patient is Full Code Status
[2017-06-28] MEDS: Lidocaine 5% 700 MG Patch TOP SCH (17:41)
[2017-06-28] MEDS: Famotidine 20 MG Tab PO SCH (20:08)
[2017-06-29] MEDS: HYDROmorphone 1 MG/ML Syringe IVPUSH PRN ×4 (00:26→17:56)
[2017-06-29] MEDS: Dextrose 5%-0.9% NaCl 1,000 ML IV SCH (02:01)
--- NOTE | 2017-06-29 07:46 | PCM.PN ---
- General Info Date of Service: 06/29/17 Admission Dx/Problem (Free Text): Abdominal Pain Subjective Update: Follow up Functional Status: Reports: Pain Controlled, Tolerating Diet, Ambulating, Urinating. Denies: New Symptoms - Review of Systems General: Denies: Fever, Weakness, Fatigue, Malaise HEENT: Reports: No Symptoms Pulmonary: Denies: Shortness of Breath Cardiovascular: Denies: Chest Pain, Palpitations, Dyspnea on Exertion, Lightheadedness Gastrointestinal: Reports: Flatus. Denies: Abdominal Pain, Nausea, Vomiting Genitourinary: Reports: No Symptoms Musculoskeletal: Reports: Joint Pain Skin: Reports: No Symptoms Neurological: Denies: Confusion, Difficulty Walking, Weakness, Gait Disturbance Psychiatric: Denies: Depression, Anxiety, Agitation, Hallucinations Systems Review Comment:: No overnight issues. He is now able to tolerate regular meals w/o GI symptoms. He has no more diarrhea. He still complaints of joint pains and he is routinely asking dilaudid for pain control. His RF is negative. - Patient Data Vitals - Most Recent: Last Vital Signs Temp 36.6 C 06/29/17 03:25 Pulse 58 L 06/29/17 03:25 Resp 12 06/29/17 03:25 BP 106/68 06/29/17 03:25 Pulse Ox 90 L 06/29/17 03:25 Weight - Most Recent: 105.732 kg I&O - Last 24 Hours: Intake & Output 06/28/17 06/29/17 06/29/17 22:59 06:59 14:59 Intake Total 2646 2551 Balance 2646 2551 Lab Results Last 24 Hours: Laboratory Results - last 24 hr 06/28/17 06/28/17 06/29/17 Range/Units 05:50 15:39 06:06 WBC 4.39 (4.23-9.07) K/mm3 RBC 4.09 L (4.63-6.08) M/mm3 Hgb 13.1 L (13.7-17.5) gm/L Hct 37.0 L (40.1-51.0) % MCV 90.5 (79.0-92.2) fl MCH 32.0 (25.7-32.2) pg MCHC 35.4 (32.2-35.5) g/dl RDW Std Deviation 44.0 H (35.1-43.9) fL Plt Count 112 L (163-337) K/mm3 MPV 10.3 (9.4-12.3) fl Neut % (Auto) 16.9 L (34.0-67.9) % Lymph % (Auto) 44.6 (21.8-53.1) % [place] % (Auto) 25.3 H (5.3-12.2) % Eos % (Auto) 5.9 (0.8-7.0) Baso % (Auto) 6.8 H (0.1-1.2) % Neut # (Auto) 0.74 L (1.78-5.38) K/mm3 Lymph # (Auto) 1.96 (1.32-3.57) K/mm3 [place] # (Auto) 1.11 H (0.30-0.82) K/mm3 Eos # (Auto) 0.26 (0.04-0.54) K/mm3 Baso # (Auto) 0.30 H (0.01-0.08) K/mm3 Manual Slide Review Normal smear Sodium (136-145) mEq/L Potassium (3.5-5.1) mEq/L Chloride (98-107) mEq/L Carbon Dioxide (21-32) mEq/L Anion Gap (5-15) BUN (7-18) mg/dL Creatinine (0.7-1.3) mg/dL Est Cr Clr Drug Dosing mL/min Estimated GFR (MDRD) (>60) mL/min BUN/Creatinine Ratio (14-18) Glucose (74-106) mg/dL Calcium (8.5-10.1) mg/dL Magnesium (1.8-2.4) mg/dl Total Bilirubin (0.2-1.0) mg/dL AST (15-37) U/L ALT (16-63) U/L Alkaline Phosphatase (46-116) U/L Ammonia 25 (11-32) umol/L C-Reactive Protein (<1.0) mg/dL Total Protein (6.4-8.2) g/dl Albumin (3.4-5.0) g/dl Globulin gm/dL Albumin/Globulin Ratio (1-2) Rheumatoid Factor Scrn Negative (NEGATIVE) 06/29/17 Range/Units 06:06 WBC (4.23-9.07) K/mm3 RBC (4.63-6.08) M/mm3 Hgb (13.7-17.5) gm/L Hct (40.1-51.0) % MCV (79.0-92.2) fl MCH (25.7-32.2) pg MCHC (32.2-35.5) g/dl RDW Std Deviation (35.1-43.9) fL Plt Count (163-337) K/mm3 MPV (9.4-12.3) fl Neut % (Auto) (34.0-67.9) % Lymph % (Auto) (21.8-53.1) % [place] % (Auto) (5.3-12.2) % Eos % (Auto) (0.8-7.0) Baso % (Auto) (0.1-1.2) % Neut # (Auto) (1.78-5.38) K/mm3 Lymph # (Auto) (1.32-3.57) K/mm3 [place] # (Auto) (0.30-0.82) K/mm3 Eos # (Auto) (0.04-0.54) K/mm3 Baso # (Auto) (0.01-0.08) K/mm3 Manual Slide Review Sodium 141 (136-145) mEq/L Potassium 3.9 (3.5-5.1) mEq/L Chloride 107 (98-107) mEq/L Carbon Dioxide 24 (21-32) mEq/L Anion Gap 13.9 (5-15) BUN 7 (7-18) mg/dL Creatinine 0.9 (0.7-1.3) mg/dL Est Cr Clr Drug Dosing 122.79 mL/min Estimated GFR (MDRD) > 60 (>60) mL/min BUN/Creatinine Ratio 7.8 L (14-18) Glucose 103 (74-106) mg/dL Calcium 8.0 L (8.5-10.1) mg/dL Magnesium 1.9 (1.8-2.4) mg/dl Total Bilirubin 5.4 H (0.2-1.0) mg/dL AST 687 H (15-37) U/L ALT 1107 H (16-63) U/L Alkaline Phosphatase 154 H (46-116) U/L Ammonia (11-32) umol/L C-Reactive Protein 4.8 H* (<1.0) mg/dL Total Protein 5.8 L (6.4-8.2) g/dl Albumin 2.9 L (3.4-5.0) g/dl Globulin 2.9 gm/dL Albumin/Globulin Ratio 1.0 (1-2) Rheumatoid Factor Scrn (NEGATIVE) Raffi Results Last 24 Hours: Microbiology 06/27/17 00:45 Urine Culture - Final Urine, Bladder MIXED PADMINI SUGGESTIVE OF CONTAMINATION. Med Orders - Current: Current Medications Albuterol/Ipratropium (Duoneb 3.0-0.5 Mg/3 Ml) 3 ml NEB Q4H PRN PRN Reason: Shortness Of Breath/wheezing Famotidine (Pepcid) 20 mg PO BID [facility] Last Admin: 06/28/17 20:08 Dose: 20 mg Hydralazine HCl (Apresoline) 20 mg IVPUSH Q4H PRN PRN Reason: Hypertension Hydromorphone HCl (Dilaudid) 1 mg IVPUSH Q4H PRN PRN Reason: Pain (severe 7-10) Last Admin: 06/29/17 06:29 Dose: 1 mg Promethazine HCl 12.5 mg/ (Sodium Chloride) 50.5 mls @ 100 mls/hr IV Q6H PRN PRN Reason: Nausea/Vomiting Dextrose/Sodium Chloride (Dextrose 5%-Normal Saline) 1,000 mls @ 125 mls/hr IV ASDIRECTED [facility] Last Admin: 06/29/17 02:01 Dose: 125 mls/hr Ibuprofen (Motrin) 800 mg PO Q6H PRN PRN Reason: Fever Last Admin: 06/28/17 20:10 Dose: 800 mg Lidocaine (Lidoderm 5%) 700 mg TOP Q24H [facility] Last Admin: 06/28/17 17:41 Dose: Not Given Lorazepam (Ativan) 1 mg IV Q6H PRN PRN Reason: Anxiety Last Admin: 06/27/17 09:20 Dose: 1 mg Magnesium Sulfate (Pharmacy To Dose - Magnesium Replacement) 0 dose .XX ASDIRECTED PRN PRN Reason: RX TO MONITOR MAG LEVELS Metoprolol Tartrate (Lopressor) 5 mg IVPUSH Q4H PRN PRN Reason: Tachycardia Ondansetron HCl (Zofran) 4 mg IV Q6H PRN PRN Reason: Nausea/Vomiting Potassium Chloride (Pharmacy To Dose - Potassium Replacement) 0 dose .XX ASDIRECTED PRN PRN Reason: RX TO MONITOR K LEVELS Propranolol HCl (Inderal La) 80 mg PO DAILY [facility] Last Admin: 06/28/17 08:08 Dose: 80 mg Sodium Chloride (Saline Flush) 10 ml FLUSH ASDIRECTED PRN PRN Reason: Keep Vein Open Last Admin: 06/26/17 20:44 Dose: 10 ml Temazepam (Restoril) 15 mg PO BEDTIME PRN PRN Reason: Sleep Discontinued Medications Acetaminophen (Tylenol) 975 mg PO NOW ONE Stop: 06/26/17 20:19 Last Admin: 06/26/17 20:46 Dose: 975 mg Acetaminophen (Tylenol) 650 mg PO Q4H PRN PRN Reason: Fever Acetaminophen/Butalbital/Caffeine (Fioricet 325-50-40 Mg) 2 tab PO Q6H PRN PRN Reason: Headache Last Admin: 06/28/17 04:34 Dose: 2 tab Dexamethasone (Dexamethasone) 4 mg IVPUSH ONETIME ONE Stop: 06/27/17 01:06 Last Admin: 06/27/17 01:33 Dose: 4 mg Diatrizoate Meglum/Diatrizoate Sod (Gastrografin 37%) 90 ml PO ONETIME ONE Stop: 06/26/17 22:34 Last Admin: 06/26/17 22:34 Dose: 90 ml Diphenhydramine HCl (Benadryl) 50 mg IVPUSH ONETIME ONE Stop: 06/27/17 00:31 Last Admin: 06/27/17 00:56 Dose: 50 mg Famotidine (Pepcid) 20 mg IVPUSH BID [facility] Last Admin: 06/28/17 08:07 Dose: 20 mg Hydromorphone HCl (Dilaudid) 1 mg IVPUSH ONETIME ONE Stop: 06/26/17 20:19 Last Admin: 06/26/17 20:40 Dose: 1 mg Hydromorphone HCl (Dilaudid) 1 mg IVPUSH ONETIME ONE Stop: 06/27/17 00:05 Last Admin: 06/27/17 00:45 Dose: 1 mg Piperacillin Sod/Tazobactam (Sod 4.5 gm/ Sodium Chloride) 100 mls @ 200 mls/hr IV ONETIME ONE Stop: 06/26/17 20:47 Last Admin: 06/27/17 01:27 Dose: 200 mls/hr Sodium Chloride (Normal Saline) 2,000 mls @ 999 mls/hr IV ONETIME ONE Stop: 06/26/17 22:19 Last Admin: 06/26/17 20:38 Dose: 999 mls/hr Ceftriaxone Sodium 2 gm/ (Sodium Chloride) 100 mls @ 200 mls/hr IV Q24H ONE Stop: 06/26/17 20:47 Last Admin: 06/26/17 20:44 Dose: Not Given Ceftriaxone Sodium 2 gm/ (Sodium Chloride) 100 mls @ 200 mls/hr IV ONETIME ONE Stop: 06/26/17 20:47 Last Admin: 06/27/17 00:41 Dose: 200 mls/hr Sodium Chloride (Normal Saline) Confirm Administered Dose 100 mls @ as directed .ROUTE .[facility]-MED ONE Stop: 06/26/17 20:38 Last Admin: 06/26/17 20:41 Dose: Not Given Sodium Chloride (Normal Saline) 1,000 mls @ 999 mls/hr IV ONETIME ONE Stop: 06/26/17 23:57 Last Admin: 06/26/17 23:06 Dose: 999 mls/hr Sodium Chloride (Normal Saline) 1,000 mls @ 250 mls/hr IV ASDIRECTED YANELI Last Admin: 06/27/17 14:53 Dose: 250 mls/hr Ceftriaxone Sodium 1 gm/ (Sodium Chloride) 100 mls @ 200 mls/hr IV Q24H YANELI Sodium Chloride (Normal Saline) 100 mls @ 125 mls/hr IV ASDIRECTED YANELI Iopamidol (Isovue-300 (61%)) 125 ml IVPUSH ONETIME ONE Stop: 06/26/17 22:34 Last Admin: 06/26/17 22:35 Dose: 125 ml Magnesium Oxide (Magnesium Oxide) 400 mg PO ONETIME ONE Stop: 06/28/17 08:01 Last Admin: 06/28/17 08:07 Dose: 400 mg Metoclopramide HCl (Reglan) 5 mg IVPUSH ONETIME ONE Stop: 06/27/17 00:49 Last Admin: 06/27/17 01:31 Dose: 5 mg Ondansetron HCl (Zofran) 4 mg IVPUSH ONETIME ONE Stop: 06/26/17 20:19 Last Admin: 06/26/17 20:39 Dose: 4 mg Oxycodone HCl (Oxycodone) 5 mg PO Q4H PRN PRN Reason: Pain (moderate 4-6) Last Admin: 06/28/17 04:34 Dose: 5 mg Pantoprazole Sodium (Protonix Iv) 40 mg IVPUSH ONETIME ONE Stop: 06/27/17 00:35 Last Admin: 06/27/17 00:56 Dose: 40 mg Pneumococcal Polyvalent Vaccine (Pneumovax 23) 0.5 ml IM .ONCE ONE Stop: 06/27/17 01:30 Sumatriptan Succinate (Imitrex) 6 mg SUBCUT ONETIME ONE Stop: 06/27/17 00:49 Last Admin: 06/27/17 01:30 Dose: Not Given Temazepam (Restoril) 30 mg PO BEDTIME ONE Stop: 06/27/17 00:30 Last Admin: 06/27/17 00:56 Dose: 30 mg Topiramate (Topamax) 25 mg PO BEDTIME ONE Stop: 06/27/17 00:44 Last Admin: 06/27/17 01:32 Dose: Not Given Topiramate (Topamax) 25 mg PO BEDTIME YANELI - Exam General: Alert, Oriented, Cooperative, No Acute Distress HEENT: Pupils Equal, Pupils Reactive, EOMI, Mucous Membr. Moist/[place] Neck: Supple, Trachea Midline, No JVD Lungs: Clear to Auscultation, Normal Respiratory Effort Cardiovascular: Regular Rate, Regular Rhythm GI/Abdominal Exam: Normal Bowel Sounds, Soft, Non-Tender, No Organomegaly, No Distention, No Abnormal Bruit, No Mass (Male) Exam: Deferred Back Exam: Normal Inspection, Decreased Range of Motion Extremities: Normal Inspection, Normal Range of Motion, Non-Tender, No Pedal Edema, Normal Capillary Refill Peripheral Pulses: 3+: Posterior Tibial (L), Posterior Tibial (R), Dorsalis Pedis (L), Dorsalis Pedis (R) Skin: Warm, Dry, Intact Neurological: No New Focal Deficit Psy/Mental Status: Alert, Normal Affect, Normal Mood - Problem List Review Problem List Initiated/Reviewed/Updated: Yes - My Orders Last 24 Hours: My Active Orders 06/28/17 12:42 Ibuprofen [Motrin] 800 mg PO Q6H PRN 06/28/17 16:00 Lidocaine 5% [Lidoderm 5%] 700 mg TOP Q24H 06/28/17 Dinner Regular Diet [DIET] 06/30/17 05:11 C-REACTIVE PROTEIN [CHEM] AM CBC WITH AUTO DIFF [HEME] AM COMPREHENSIVE METABOLIC PN,CMP [CHEM] AM MAGNESIUM [CHEM] AM 07/01/17 05:11 C-REACTIVE PROTEIN [CHEM] AM CBC WITH AUTO DIFF [HEME] AM COMPREHENSIVE METABOLIC PN,CMP [CHEM] AM MAGNESIUM [CHEM] AM - Plan Plan:: Assessment/Plan: Acute: Hepato-Biliary Disease, Labile LFTs - Infection vs Auto-immune - CT scan per [facility]: Diffuse Fatty Liver Disease - Cannot r/o Acute Hepatitis--hepatitis panel pending (ordered in ED)- likely will not be back until next week as is a send out test - He denies recent rapid weight loss - Risk factor: In relationship with someone who is infected with hepatitis - DDx: Cholangitis, Cirrhosis, Malignancy, Auto-immune, Drugs/Toxins, Strictures of Bile Ducts, Parasites (unlikely eosinophils are low) Jaundice/Hyperbilubinemia, Labile - Hepatic vs Post Hepatic: Suspect Hepatic due to Diffuse Fatty Liver - Urobilinogen >=8 - Urine Bili 2+, Direct Bili 1.5 and Total Bili 4.8 - RB is normal and no hx/o blood cell disorders (Rule out Pre-hepatic) - Abdominal U/S: benign findings Diffuse Fatty Liver Disease per CT scan [facility] report - Monitor for acute hepatic failure - He has been taking a lot of Tylenol lately due to Migraine HAs - IV hydration and supportive Care - Dietary consult Diffuse Joint Pain - No rash, edema or effusion - Arthritis vs Deposition of excess bili in joints - He has been taking dilaudid routinely - Will offer Tramadol 100 mg q6 PRN as alternative to dilaudid Resolved: S/p Hematuria and Dysuria - UA result noted for markedly elevated Bilirubin and Urobilinogen - Still sexually active with his partner only - STD panel ordered in ED: negcative GC/NG - Already received IV Zosyn and Rocephin in ED - Discontinue Abx S/p Abdominal Pain, Improved - Likely 2/2 Hepato-Biliary Disease - Elevated LE and GGT - Non-Alcoholic - Treat Underlying cause - UA is not suggestive of UTI S/p Migraine BYRNES, Improved - Photophobia and Tension at the back of his neck - IV Reglan + Sumatriptan and Steroid for immediate relief - IV Benadryl to help with sleep - Topamax and BB for maintenance - DC'd fioricet d/t APAP; NO APAP products due to LFT elevation Plan: Continue current treatment- await hepatitis panel Routine AM Labs DVT/GI Prophylax Viral Panel pending as above GS consult with Dr. Tejeda SW/CM for d/c planning Patient is Full Code Status Possible d/c in am
[2017-06-29] MEDS: Propranolol 80 MG Cap.ER PO SCH (09:14)
[2017-06-29] MEDS: Famotidine 20 MG Tab PO SCH ×3 (09:14→23:58)
[2017-06-29] MEDS: Sodium Chloride 0.9% 1,000 ML IV SCH ×3 (10:36→20:38)
[2017-06-29] MEDS: Lidocaine 5% 700 MG Patch TOP SCH (15:40)
[2017-06-29] MEDS ORDERED: Calcium Carbonate 500 MG Tab.Chew PO PRN (16:12)
[2017-06-29] MEDS: traMADol 50 MG Tab PO PRN (17:01)
[2017-06-29] MEDS: Ibuprofen 800 MG Tab PO PRN (19:36)
[2017-06-30] MEDS: Sodium Chloride 0.9% 1,000 ML IV SCH ×3 (00:32→09:07)
[2017-06-30] MEDS: traMADol 50 MG Tab PO PRN (04:36)
[2017-06-30] MEDS ORDERED: Pantoprazole 40 MG Vial IVPUSH ONE (08:31)
[2017-06-30] MEDS: Famotidine 20 MG Tab PO SCH (08:39)
[2017-06-30] MEDS: Propranolol 80 MG Cap.ER PO SCH (08:40)
[2017-06-30 10:26] VITALS: BP 131/85
--- NOTE | 2017-06-30 11:03 | PCM.DCSUM1 ---
Discharge Summary - Hospital Course Brief History: This is a 31-year-old healthy white male who presents to the emergency department with complaints of migraine headache along with abdominal pain. His symptoms are associated with hot and cold temperature, sweats, generalized body aches, and poor appetite. He was admitted for evaulaution of acute hepatitis and hepato-biliary disease. - Discharge Data Discharge Date: 06/30/17 Discharge Disposition: Home, Self-Care 01 Condition: Good - Discharge Diagnosis/Problem(s) (1) Hepatitis SNOMED Code(s): 841849929 ICD Code: K75.9 - INFLAMMATORY LIVER DISEASE, UNSPECIFIED Status: Acute (2) Fatty infiltration of liver SNOMED Code(s): 794446393 ICD Code: K76.0 - FATTY (CHANGE OF) LIVER, NOT ELSEWHERE CLASSIFIED Status : Acute (3) Hyperbilirubinemia SNOMED Code(s): 37194635 ICD Code: E80.6 - OTHER DISORDERS OF BILIRUBIN METABOLISM Status: Acute (4) Migraine SNOMED Code(s): 64921882 ICD Code: G43.909 - MIGRAINE, UNSP, NOT INTRACTABLE, WITHOUT STATUS MIGRAINOSUS Status: Ruled-out Qualifiers: Qualified Code(s): G43.009 - Migraine without aura, not intractable, without status migrainosus (5) Abdominal pain in male SNOMED Code(s): 21231124 ICD Code: R10.9 - UNSPECIFIED ABDOMINAL PAIN Status: Resolved Priority: High (6) Diffuse pain SNOMED Code(s): 7517705 ICD Code: R52 - PAIN, UNSPECIFIED Status: Acute Problem Details: Improved - Patient Summary/Data Operative Procedure(s) Performed: None Complications: None during this admission Consults: Consultations 06/27/17 00:35 Consult to Case Management [CONS] Routine Consult to Intelligence Officer [CONS] Routine 06/27/17 10:14 Consult to Physician [CONS] Routine Recommended Follow-up Testing/Procedures: CMP in 1 week Hospital Course: Patient was primarily admitted for evaluation of hepato-biliary disease. Initial workup suggested patient had an acute hepatitis. CT scan of his abdomen showed diffuse fatty infiltration. Hepatitis panel was ordered and patient was provided with supportive care and medications to control associated symptoms. Dr. Tejeda, general surgeon, was consulted for further evaluation but no additional treatment or testing recommended. During this hospitalization, he was treated with migraine headache and generalized body and joint aches and pain. His RF was negative. His liver enzymes have improved. Unfortunately, his hepatitis panel were still pending. Patient had done well and his hospital course was fairly uncomplicated. The patient is now ready for discharge. He will be discharged with pain and migraine headache medications. He was advised to avoid alcohol, tylenol or or any acetaminophen containing products for now. He was further advised to keep his appointment with RAFAEL العراقي in July and to obtain a primary care doctor that could follow-up and monitor him for now. We recommended for him to get a repeat CMP in 1 week to monitor his liver enzymes. Patient expressed understanding and in agreement with the plans as discussed above. All questions were answered. - Patient Instructions Diet: Usual Diet as Tolerated, No Alcoholic Beverages Activity: As Tolerated Driving: May Drive Today Showering/Bathing: May Shower Notify Provider of: Fever, Increased Pain, Swelling and Redness, Nausea and/or Vomiting Other/Special Instructions: - Please take all medications as directed. - Practice Lifestyle Modifications: Eat Properly, Exercise Regularly and Lose Weight. - Follow Up Lab in 1 week for Abnormal Liver Enzymes. - Avoid alcohol ! - Absolutely NO TYLENOL or ACETAMINOPHEN containg products. - Strongly recommend you keep your appointment with the GI doctor. - Find a new family doctor that can follow you - Discharge Plan Prescriptions/Med Rec: Naproxen [Naprosyn] 250 mg PO ASDIRECTED PRN #30 tablet PRN Reason: Other Propranolol [Inderal LA] 80 mg PO DAILY #30 cap.er SUMAtriptan Succinate [Imitrex] 25 mg PO ASDIRECTED PRN #20 tablet PRN Reason: Other oxyCODONE 10 mg PO Q6H PRN #18 tablet PRN Reason: Pain Home Medications: Home Meds Naproxen [Naprosyn] 250 mg PO ASDIRECTED PRN #30 tablet 06/30/17 [Rx] Propranolol [Inderal LA] 80 mg PO DAILY #30 cap.er 06/30/17 [Rx] SUMAtriptan Succinate [Imitrex] 25 mg PO ASDIRECTED PRN #20 tablet 06/30/17 [Rx] oxyCODONE 10 mg PO Q6H PRN #18 tablet 06/30/17 [Rx] Patient Handouts: Smoking Cessation, Tips for Success, [id number], Abdominal Pain, Adult, Hepatitis C, [id number], Diet and Hepatitis, Fever, Adult, Easy- to-Read Referrals: PCP,None [Primary Care Provider] - (Please choose a primary care physician to follow-up with.) Kieran Sweeney MD [Ordering Only Provider] - 08/14/17 3:00 pm (Gastrointestinal specialist follow-up appointment. This appointment is in Central Standard Time, 2:00 pm Mountain Time. Please arrive at [facility] just north of [facility] to check in.) - Discharge Summary/Plan Comment DC Time >30 min.: Yes (45 mins) Discharge Summary/Plan Comment: Discharge to Home - General Info Date of Service: 06/30/17 Admission Dx/Problem (Free Text: Abdominal Pain Subjective Update: Follow up Functional Status: Reports: Pain Controlled, Tolerating Diet, Ambulating, Urinating. Denies: New Symptoms - Review of Systems General: Denies: Fever, Weakness, Fatigue, Malaise, Chills HEENT: Reports: No Symptoms Pulmonary: Denies: Shortness of Breath Cardiovascular: Denies: Chest Pain Gastrointestinal: Denies: Abdominal Pain, Diarrhea, Nausea, Vomiting Genitourinary: Reports: No Symptoms Musculoskeletal: Reports: No Symptoms Skin: Denies: Cyanosis, Pruritis, Rash Neurological: Denies: Confusion, Difficulty Walking, Weakness, Gait Disturbance Psychiatric: Denies: Depression, Anxiety, Agitation, Hallucinations Systems Review Comment: No overnight or acute issues. He is essentially the same as yesterday with no worsening of current illness. His CMP looks much better. He wants to go home today. Hepatitis panel report is pending. - Patient Data Vitals - Most Recent: Last Vital Signs Temp 36.7 C 06/30/17 08:24 Pulse 53 L 06/30/17 08:24 Resp 20 06/30/17 08:24 BP 131/85 06/30/17 08:24 Pulse Ox 95 06/30/17 08:24 Weight - Most Recent: 105.959 kg I&O - Last 24 hours: Intake & Output 06/29/17 06/30/17 06/30/17 22:59 06:59 14:59 Intake Total 2289 3023 Balance 2289 3023 Lab Results - Last 24 hrs: Laboratory Results - last 24 hr 06/30/17 06/30/17 Range/Units 06:55 06:55 WBC 9.53 H (4.23-9.07) K/mm3 RBC 4.37 L (4.63-6.08) M/mm3 Hgb 13.8 (13.7-17.5) gm/L Hct 39.3 L (40.1-51.0) % MCV 89.9 (79.0-92.2) fl MCH 31.6 (25.7-32.2) pg MCHC 35.1 (32.2-35.5) g/dl RDW Std Deviation 44.7 H (35.1-43.9) fL Plt Count 135 L (163-337) K/mm3 MPV 10.0 (9.4-12.3) fl Neut % (Auto) 16.4 L (34.0-67.9) % Lymph % (Auto) 70.7 H (21.8-53.1) % [place] % (Auto) 7.7 (5.3-12.2) % Eos % (Auto) 2.0 (0.8-7.0) Baso % (Auto) 3.0 H (0.1-1.2) % Neut # (Auto) 1.56 L (1.78-5.38) K/mm3 Lymph # (Auto) 6.74 H (1.32-3.57) K/mm3 [place] # (Auto) 0.73 (0.30-0.82) K/mm3 Eos # (Auto) 0.19 (0.04-0.54) K/mm3 Baso # (Auto) 0.29 H (0.01-0.08) K/mm3 Manual Slide Review Abnormal smear Sodium 140 (136-145) mEq/L Potassium 3.9 (3.5-5.1) mEq/L Chloride 107 (98-107) mEq/L Carbon Dioxide 24 (21-32) mEq/L Anion Gap 12.9 (5-15) BUN 7 (7-18) mg/dL Creatinine 0.8 (0.7-1.3) mg/dL Est Cr Clr Drug Dosing 138.14 mL/min Estimated GFR (MDRD) > 60 (>60) mL/min BUN/Creatinine Ratio 8.8 L (14-18) Glucose 101 (74-106) mg/dL Calcium 8.4 L (8.5-10.1) mg/dL Magnesium 1.7 L (1.8-2.4) mg/dl Total Bilirubin 5.2 H (0.2-1.0) mg/dL AST 328 H (15-37) U/L ALT 804 H (16-63) U/L Alkaline Phosphatase 193 H (46-116) U/L C-Reactive Protein 3.2 H* (<1.0) mg/dL Total Protein 6.1 L (6.4-8.2) g/dl Albumin 3.0 L (3.4-5.0) g/dl Globulin 3.1 gm/dL Albumin/Globulin Ratio 1.0 (1-2) Med Orders - Current: Current Medications Albuterol/Ipratropium (Duoneb 3.0-0.5 Mg/3 Ml) 3 ml NEB Q4H PRN PRN Reason: Shortness Of Breath/wheezing Calcium Carbonate/Glycine (Tums) 1,000 mg PO Q2HR PRN PRN Reason: Indigestion Last Admin: 06/30/17 08:39 Dose: 1,000 mg Famotidine (Pepcid) 20 mg PO BID [facility] Last Admin: 06/30/17 08:39 Dose: 20 mg Hydralazine HCl (Apresoline) 20 mg IVPUSH Q4H PRN PRN Reason: Hypertension Hydromorphone HCl (Dilaudid) 1 mg IVPUSH Q4H PRN PRN Reason: Pain (severe 7-10) Last Admin: 06/29/17 17:56 Dose: 1 mg Promethazine HCl 12.5 mg/ (Sodium Chloride) 50.5 mls @ 100 mls/hr IV Q6H PRN PRN Reason: Nausea/Vomiting Sodium Chloride (Normal Saline) 1,000 mls @ 250 mls/hr IV ASDIRECTED [facility] Last Admin: 06/30/17 09:07 Dose: 250 mls/hr Ibuprofen (Motrin) 800 mg PO Q6H PRN PRN Reason: Fever Last Admin: 06/29/17 19:36 Dose: 800 mg Lidocaine (Lidoderm 5%) 700 mg TOP Q24H [facility] Last Admin: 06/29/17 15:40 Dose: Not Given Lorazepam (Ativan) 1 mg IV Q6H PRN PRN Reason: Anxiety Last Admin: 06/27/17 09:20 Dose: 1 mg Magnesium Sulfate (Pharmacy To Dose - Magnesium Replacement) 0 dose .XX ASDIRECTED PRN PRN Reason: RX TO MONITOR MAG LEVELS Metoprolol Tartrate (Lopressor) 5 mg IVPUSH Q4H PRN PRN Reason: Tachycardia Ondansetron HCl (Zofran) 4 mg IV Q6H PRN PRN Reason: Nausea/Vomiting Potassium Chloride (Pharmacy To Dose - Potassium Replacement) 0 dose .XX ASDIRECTED PRN PRN Reason: RX TO MONITOR K LEVELS Propranolol HCl (Inderal La) 80 mg PO DAILY [facility] Last Admin: 06/30/17 08:40 Dose: 80 mg Sodium Chloride (Saline Flush) 10 ml FLUSH ASDIRECTED PRN PRN Reason: Keep Vein Open Last Admin: 06/26/17 20:44 Dose: 10 ml Temazepam (Restoril) 15 mg PO BEDTIME PRN PRN Reason: Sleep Tramadol HCl (Ultram) 100 mg PO Q6H PRN PRN Reason: Pain Last Admin: 06/30/17 04:36 Dose: 100 mg Discontinued Medications Acetaminophen (Tylenol) 975 mg PO NOW ONE Stop: 06/26/17 20:19 Last Admin: 06/26/17 20:46 Dose: 975 mg Acetaminophen (Tylenol) 650 mg PO Q4H PRN PRN Reason: Fever Acetaminophen/Butalbital/Caffeine (Fioricet 325-50-40 Mg) 2 tab PO Q6H PRN PRN Reason: Headache Last Admin: 06/28/17 04:34 Dose: 2 tab Dexamethasone (Dexamethasone) 4 mg IVPUSH ONETIME ONE Stop: 06/27/17 01:06 Last Admin: 06/27/17 01:33 Dose: 4 mg Diatrizoate Meglum/Diatrizoate Sod (Gastrografin 37%) 90 ml PO ONETIME ONE Stop: 06/26/17 22:34 Last Admin: 06/26/17 22:34 Dose: 90 ml Diphenhydramine HCl (Benadryl) 50 mg IVPUSH ONETIME ONE Stop: 06/27/17 00:31 Last Admin: 06/27/17 00:56 Dose: 50 mg Famotidine (Pepcid) 20 mg IVPUSH BID [facility] Last Admin: 06/28/17 08:07 Dose: 20 mg Hydromorphone HCl (Dilaudid) 1 mg IVPUSH ONETIME ONE Stop: 06/26/17 20:19 Last Admin: 06/26/17 20:40 Dose: 1 mg Hydromorphone HCl (Dilaudid) 1 mg IVPUSH ONETIME ONE Stop: 06/27/17 00:05 Last Admin: 06/27/17 00:45 Dose: 1 mg Piperacillin Sod/Tazobactam (Sod 4.5 gm/ Sodium Chloride) 100 mls @ 200 mls/hr IV ONETIME ONE Stop: 06/26/17 20:47 Last Admin: 06/27/17 01:27 Dose: 200 mls/hr Sodium Chloride (Normal Saline) 2,000 mls @ 999 mls/hr IV ONETIME ONE Stop: 06/26/17 22:19 Last Admin: 06/26/17 20:38 Dose: 999 mls/hr Ceftriaxone Sodium 2 gm/ (Sodium Chloride) 100 mls @ 200 mls/hr IV Q24H ONE Stop: 06/26/17 20:47 Last Admin: 06/26/17 20:44 Dose: Not Given Ceftriaxone Sodium 2 gm/ (Sodium Chloride) 100 mls @ 200 mls/hr IV ONETIME ONE Stop: 06/26/17 20:47 Last Admin: 06/27/17 00:41 Dose: 200 mls/hr Sodium Chloride (Normal Saline) Confirm Administered Dose 100 mls @ as directed .ROUTE .STK-MED ONE Stop: 06/26/17 20:38 Last Admin: 06/26/17 20:41 Dose: Not Given Sodium Chloride (Normal Saline) 1,000 mls @ 999 mls/hr IV ONETIME ONE Stop: 06/26/17 23:57 Last Admin: 06/26/17 23:06 Dose: 999 mls/hr Sodium Chloride (Normal Saline) 1,000 mls @ 250 mls/hr IV ASDIRECTED [facility] Last Admin: 06/27/17 14:53 Dose: 250 mls/hr Ceftriaxone Sodium 1 gm/ (Sodium Chloride) 100 mls @ 200 mls/hr IV Q24H YANELI Sodium Chloride (Normal Saline) 100 mls @ 125 mls/hr IV ASDIRECTED [facility] Dextrose/Sodium Chloride (Dextrose 5%-Normal Saline) 1,000 mls @ 125 mls/hr IV ASDIRECTED YANELI Last Admin: 06/29/17 02:01 Dose: 125 mls/hr Iopamidol (Isovue-300 (61%)) 125 ml IVPUSH ONETIME ONE Stop: 06/26/17 22:34 Last Admin: 06/26/17 22:35 Dose: 125 ml Magnesium Oxide (Magnesium Oxide) 400 mg PO ONETIME ONE Stop: 06/28/17 08:01 Last Admin: 06/28/17 08:07 Dose: 400 mg Metoclopramide HCl (Reglan) 5 mg IVPUSH ONETIME ONE Stop: 06/27/17 00:49 Last Admin: 06/27/17 01:31 Dose: 5 mg Ondansetron HCl (Zofran) 4 mg IVPUSH ONETIME ONE Stop: 06/26/17 20:19 Last Admin: 06/26/17 20:39 Dose: 4 mg Oxycodone HCl (Oxycodone) 5 mg PO Q4H PRN PRN Reason: Pain (moderate 4-6) Last Admin: 06/28/17 04:34 Dose: 5 mg Pantoprazole Sodium (Protonix Iv) 40 mg IVPUSH ONETIME ONE Stop: 06/27/17 00:35 Last Admin: 06/27/17 00:56 Dose: 40 mg Pantoprazole Sodium (Protonix Iv) 40 mg IVPUSH ONETIME ONE Stop: 06/30/17 08:32 Last Admin: 06/30/17 08:39 Dose: 40 mg Pneumococcal Polyvalent Vaccine (Pneumovax 23) 0.5 ml IM .ONCE ONE Stop: 06/27/17 01:30 Sumatriptan Succinate (Imitrex) 6 mg SUBCUT ONETIME ONE Stop: 06/27/17 00:49 Last Admin: 06/27/17 01:30 Dose: Not Given Temazepam (Restoril) 30 mg PO BEDTIME ONE Stop: 06/27/17 00:30 Last Admin: 06/27/17 00:56 Dose: 30 mg Topiramate (Topamax) 25 mg PO BEDTIME ONE Stop: 06/27/17 00:44 Last Admin: 06/27/17 01:32 Dose: Not Given Topiramate (Topamax) 25 mg PO BEDTIME YANELI - Exam General: Reports: Alert, Oriented, Cooperative, No Acute Distress, Other ( Overweight) HEENT: Reports: Pupils Equal, Pupils Reactive, EOMI, Mucous Membr. Moist/[place]. Denies: Scleral Icterus Neck: Reports: Supple, Trachea Midline, No JVD, No Thyromegaly Lungs: Reports: Clear to Auscultation, Normal Respiratory Effort Cardiovascular: Reports: Regular Rate, Regular Rhythm GI/Abdominal Exam: Normal Bowel Sounds, Soft, Non-Tender, No Organomegaly, No Distention, No Abnormal Bruit, No Mass (Male) Exam: Deferred Rectal (Males) Exam: Deferred Back Exam: Reports: Normal Inspection, Decreased Range of Motion Extremities: Normal Inspection, Normal Range of Motion, Non-Tender, No Pedal Edema, Normal Capillary Refill Skin: Reports: Warm, Dry, Intact Neurological: Reports: No New Focal Deficit Psy/Mental Status: Reports: Alert, Normal Affect, Normal Mood *Q Meaningful Use (DIS) - VTE *Q VTE Criteria *Q: - Stroke *Q Stroke Criteria *Q: - AMI *Q AMI Criteria *Q:
--- NOTE | 2017-07-02 12:29 | PCM.SN ---
- Free Text/Narrative Note: Tried calling this patient to let him know the result of his hepatitis panel but w/o any success. All numbers listed on his demographics are bad.
== END 2017-06-30 12:20 | disposition home or self-care (01) | DRG 446 ==
LOC: JD.ED 19:23 → JD.MS 23:38
PROVIDERS: ADMIT Internal Medicine; ATTEND Internal Medicine
DX: K83.9 Disease of biliary tract, unspecified (principal); K75.9 Inflammatory liver disease, unspecified; R79.89 Other specified abnormal findings of blood chemistry; R50.81 Fever presenting with conditions classified elsewhere; E86.0 Dehydration; E80.6 Other disorders of bilirubin metabolism; R31.9 Hematuria, unspecified; R30.0 Dysuria; K76.0 Fatty (change of) liver, not elsewhere classified; G43.909 Migraine, unspecified, not intractable, without status migrainosus; R74.0 Nonspecific elevation of levels of transaminase and lactic acid dehydrogenase [LDH]; M25.50 Pain in unspecified joint
CPT/HCPCS: 36415; 74177; 74177-26; 76705; 76705-26; 80053; 80074; 80306; 81001; 82140; 82248; 82977; 83605; 83690; 83735; 85025; 85610; 85730; 86140; 86430; 87040; 87086; 87491; 87591; 96361; 96374; 99222; 99232; 99233; 99239; 99284; 99285-25; A9270; A9270-GY; C9113; G0433; J0696; J1100; J1170; J1200; J2060; J2405; J2543; J2765; J7030; J7040; J7042; J7050; Q9963; Q9967

== ENCOUNTER 2017-07-20 13:45 | Emergency (ER) | payer OTHER, SELFPAY ==
[2017-07-20 14:14] VITALS: BP 130/74
--- NOTE | 2017-07-20 14:36 | EDM.PDOC ---
ED HPI GENERAL MEDICAL PROBLEM - General Chief Complaint: General Stated Complaint: JOINT PAIN Time Seen by Provider: 07/20/17 14:32 - History of Present Illness INITIAL COMMENTS - FREE TEXT/NARRATIVE: 31-year-old male presents to the emergency room for refill of his medication. Patient has joint pain believed to be related to his newly diagnosed hepatitis C. He was admitted here earlier this month and evaluation did confirm hepatitis C no other causes of his joint pain of been identified. Unfortunately the patient is taking oxycodone 10 mg 4 times a day. The patient was unable to get with his provider on Saturday for refill. Other than this patient is not having any new complaints. Did look at his old records I do not have access to his clinic notes however was able to glance at his discharge summary from his recent admissions and follow-up lab work did confirm hepatitis C and he was discharged on oxycodone 10 mg 4 times a day. Joints Pain Score (Numeric/FACES): 8 - Related Data Allergies Allergy/AdvReac Type Severity Reaction Status Date / Time No Known Allergies Allergy Verified 06/27/17 00:29 Home Meds: Home Meds Naproxen [Naprosyn] 250 mg PO ASDIRECTED PRN #30 tablet 06/30/17 [Rx] Propranolol [Inderal LA] 80 mg PO DAILY #30 cap.er 06/30/17 [Rx] SUMAtriptan Succinate [Imitrex] 25 mg PO ASDIRECTED PRN #20 tablet 06/30/17 [Rx] oxyCODONE 10 mg PO Q6H PRN #18 tablet 06/30/17 [Rx] oxyCODONE HCl [Oxycodone HCl] 10 mg PO Q6H PRN #8 tablet 07/20/17 [Rx] Past Medical History - Past Health History Medical/Surgical History: Denies Medical/Surgical History Musculoskeletal History: Reports: Fracture Neurological History: Reports: Concussion, Head Trauma, Other (See Below) 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 Denies: Constipation Neurological: Reports: No Symptoms ED EXAM, GENERAL - Physical Exam Exam: See Below Exam Limited By: No Limitations General Appearance: Alert, No Apparent Distress, Other (He seems to be in mild pain with motion) Head: Atraumatic, Normocephalic Respiratory/Chest: No Respiratory Distress, Normal Breath Sounds Cardiovascular: Regular Rate, Rhythm, No Edema, No Murmur Course - Vital Signs Last Recorded V/S: Last Vital Signs Temp 36.9 C 07/20/17 14:11 Pulse 86 07/20/17 14:11 Resp 16 07/20/17 14:11 BP 130/74 07/20/17 14:11 Pulse Ox 98 07/20/17 14:11 - Re-Assessments/Exams Free Text/Narrative Re-Assessment/Exam: 07/20/17 14:51 I was able to review his discharge medications and he was indeed discharged on oxycodone 10 mg 4 times daily from the hospital I will give him enough until he can follow-up with his primary Saturday morning #8 of the oxycodone 10 mg and inform the patient no uncertain terms that generally we don't refill chronic pain medications on the emergency room in the future he is not to expect to be able to come in to the emergency room for refills. Departure - Departure Time of Disposition: 14:56 Disposition: Home, Self-Care 01 Clinical Impression: Hepatitis C, Joint pain - Discharge Information Prescriptions: oxyCODONE HCl [Oxycodone HCl] 10 mg PO Q6H PRN #8 tablet PRN Reason: Pain Referrals: Steven Dudley PA-C [Primary Care Provider] - Forms: ED Department Discharge Additional Instructions: Return to the emergency room with any questions or problems. However we generally do not refill chronic pain medications out of the emergency room. His responsibility to follow-up with your regular provider in a timely fashion to get refills.
== END 2017-07-20 15:10 | disposition home or self-care (01) ==
LOC: JD.ED 13:45
DX: M25.50 Pain in unspecified joint (principal); B19.20 Unspecified viral hepatitis C without hepatic coma; F17.210 Nicotine dependence, cigarettes, uncomplicated; Z79.899 Other long term (current) drug therapy
CPT/HCPCS: 99283

== ENCOUNTER 2017-09-06 18:55 | Emergency (ER) | payer OTHER, SELFPAY ==
[2017-09-06 19:09] VITALS: BP 151/93
[2017-09-06] MEDS ORDERED: HYDROmorphone 1 MG/ML Syringe IM ONE (19:37)
--- NOTE | 2017-09-06 19:38 | EDM.PDOC ---
ED HPI GENERAL MEDICAL PROBLEM - General Chief Complaint: Upper Extremity Injury/Pain Stated Complaint: RFIGHT WRIST BUMP ON IT Time Seen by Provider: 09/06/17 19:29 Source of Information: Reports: Patient History Limitations: Reports: No Limitations - History of Present Illness INITIAL COMMENTS - FREE TEXT/NARRATIVE: This is a 31-year-old male. This evening he was putting an engine into his truck and apparently wasn't fitting correctly so we tried to show the engine over to the engine brace but he pushed too hard in the engine came back and crushed his right distal forearm and wrist. He has swelling on the distal ulnar side of the right forearm. He complains of pain in this area pain with movement of his fingers pain with movement of his wrist. He denies any elbow or shoulder pain or neck pain. 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 - Infectious Disease History Infectious Disease History: Reports: Chicken Pox Social & Family History - Family History Family Medical History: Noncontributory - Tobacco Use Smoking Status *Q: Current Some Day Smoker Years of Tobacco use: 2 Packs/Tins Daily: 0.1 - Caffeine Use Caffeine Use: Reports: Coffee - Recreational Drug Use Recreational Drug Use: No Review of Systems - Review of Systems Review Of Systems: See Below Constitutional: Reports: No Symptoms Eyes: Reports: No Symptoms Ears: Reports: No Symptoms Nose: Reports: No Symptoms Mouth/Throat: Reports: No Symptoms Respiratory: Reports: No Symptoms Cardiovascular: Reports: No Symptoms GI/Abdominal: Reports: No Symptoms Genitourinary: Reports: No Symptoms Musculoskeletal: Reports: Other (As per history of present illness) Skin: Reports: No Symptoms Neurological: Reports: No Symptoms Psychiatric: Reports: No Symptoms ED EXAM, GENERAL - Physical Exam Exam: See Below Exam Limited By: No Limitations General Appearance: Alert, WD/WN, Moderate Distress Eye Exam: Bilateral Eye: Normal Inspection Ears: Normal External Exam Nose: Normal Inspection Throat/Mouth: Normal Inspection, Normal Lips, Normal Voice Head: Normocephalic Neck: Supple Respiratory/Chest: No Respiratory Distress, Lungs Clear Cardiovascular: Regular Rate, Rhythm, No Murmur GI/Abdominal: Soft Back Exam: Full Range of Motion Extremities: Other (The right upper extremity shows some swelling about 8 cm on the distal ulnar area on the edge and also slightly into that wrist joint area, there is no radial swelling noted or abrasions his hands appear to be without trauma though moving his fingers and the tendon seem to cause pain over the swollen region, does not appear to be any bony deformity, the right elbow and shoulder are nontender) Neurological: Alert, Oriented Psychiatric: Anxious Skin Exam: Warm, Dry Course - Vital Signs Last Recorded V/S: Last Vital Signs Temp 98.7 F 09/06/17 19:05 Pulse 100 09/06/17 19:05 Resp 18 09/06/17 19:05 BP 151/93 H 09/06/17 19:05 Pulse Ox 98 09/06/17 19:05 - Orders/Labs/Meds Orders: Active Orders 24 hr Category Date Time Status Communication Order [RC] STAT Care 09/06/17 20:33 Active Wrist Comp Min 3V Rt [CR] Stat Exams 09/06/17 19:36 Taken Meds: Medications Discontinued Medications Generic Name Dose Route Start Last Admin Trade Name Freq PRN Reason Stop Dose Admin Hydromorphone HCl 1 mg 09/06/17 19:37 09/06/17 19:46 Dilaudid IM 09/06/17 19:38 1 mg ONETIME ONE Administration - Radiology Interpretation Free Text/Narrative:: X-ray of the right wrist with extended views show no fracture Departure - Departure Time of Disposition: 20:34 Disposition: Home, Self-Care 01 Condition: Good Clinical Impression: Crushing injury of forearm, right Qualifiers: Encounter type: initial encounter Qualified Code(s): S57.81XA - Crushing injury of right forearm, initial encounter Crushing injury of wrist Qualifiers: Encounter type: initial encounter Laterality: right Qualified Code(s): S67.31XA - Crushing injury of right wrist, initial encounter - Discharge Information Prescriptions: Hydrocodone/Acetaminophen [Hydrocodon-Acetaminophen 5-325] 1 each PO Q6H PRN # 15 tablet PRN Reason: Pain Referrals: Steven Dudley PA-C [Primary Care Provider] - Forms: ED Department Discharge, ED Return to Work/School Form Additional Instructions: Ian wrap to the right forearm and wrist, use the sling at all times when up, Take the pain medication as prescribed, follow up with your provider this week for recheck, return to the ER if needed - My Orders Last 24 Hours: My Active Orders 09/06/17 19:36 Wrist Comp Min 3V Rt [CR] Stat 09/06/17 20:33 Communication Order [RC] STAT - Assessment/Plan Last 24 Hours: My Active Orders 09/06/17 19:36 Wrist Comp Min 3V Rt [CR] Stat 09/06/17 20:33 Communication Order [RC] STAT
--- NOTE | 2017-09-08 19:59 | CR ---
Right wrist: Four views of the right wrist were obtained. Comparison: No prior wrist exam. Joint spaces are preserved. No fracture, dislocation or other bony abnormality is identified. Impression: 1. No abnormality is identified on right wrist exam. Diagnostic code #1
== END 2017-09-06 20:55 | disposition home or self-care (01) ==
LOC: JD.ED 18:55
DX: S67.31XA Crushing injury of right wrist, initial encounter (principal); S57.81XA Crushing injury of right forearm, initial encounter; F17.210 Nicotine dependence, cigarettes, uncomplicated; X50.3XXA Overexertion from repetitive movements, initial encounter
CPT/HCPCS: 73110; 96372; 99284; J1170; 99283

== ENCOUNTER 2017-09-20 12:41 | Emergency (ER) | payer OTHER, SELFPAY ==
[2017-09-20 13:31] VITALS: BP 150/97
[2017-09-20] MEDS ORDERED: HYDROmorphone 1 MG/ML Syringe IM ONE (15:54)
[2017-09-20] MEDS ORDERED: Cyclobenzaprine 10 MG Tab PO ONE (15:54)
--- NOTE | 2017-09-20 15:58 | EDM.PDOC ---
ED HPI GENERAL MEDICAL PROBLEM - General Chief Complaint: Back Pain or Injury Stated Complaint: BACK PAIN Time Seen by Provider: 09/20/17 15:00 Source of Information: Reports: Patient History Limitations: Reports: No Limitations - History of Present Illness INITIAL COMMENTS - FREE TEXT/NARRATIVE: Patient is a 31-year-old male who presents to the ED complaining of right-sided low back pain. Patient states 3 days ago he was helping his brother move bricks and developed back pain. Over the past few days pain has been getting worse. Has been taking ibuprofen with little relief. Pain is decreased with leaning forward. States he has a pressure feeling in his low back with intermittent sharp nonradiating pain. No trouble with walking. No saddle anesthesia or incontinence to urine or stool. He has no numbness and tingling to his lower extremities. Denies any sciatica. No previous history of low back injury requiring surgery. Denies any fever/chills, dysuria, sob, chest pain, nausea vomiting, and abdominal pain. Patient denies taking any narcotic medications or utilization of recreational drugs. 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 ED EXAM,LOWER BACK PAIN/INJURY - Physical Exam Exam: See Below Exam Limited By: No Limitations General Appearance: Alert, WD/WN, Moderate Distress Ears: Hearing Grossly Normal Nose: Normal Inspection Throat/Mouth: Normal Voice, No Airway Compromise Neck: Normal Inspection, Supple Respiratory/Chest: No Respiratory Distress, Lungs Clear, Normal Breath Sounds, No Accessory Muscle Use Cardiovascular: Normal Peripheral Pulses, Regular Rate, Rhythm GI/Abdominal: Normal Bowel Sounds, Soft, Non-Tender, No Organomegaly, No Distention Back Exam: Normal Inspection, Full Range of Motion, Paraspinal Tenderness ( Right lower back along L3-L4. Minimal increased with palpation. Patient is feeling very uncomfortable on examination.). No: Vertebral Tenderness Extremities: Normal Inspection, Normal Range of Motion, Non-Tender, No Pedal Edema, Normal Capillary Refill Neurological: Alert, Normal Mood/Affect, Normal Dorsiflexion, CN II-XII Intact, Normal Plantar Flexion, Normal Gait, No Motor/Sensory Deficits, Oriented x 3. No: Straight Leg Raise (L), Straight Leg Raise (R), Difficulty Walking Psychiatric: Normal Affect, Normal Mood Skin Exam: Warm, Dry, Intact, Normal Color, No Rash Course - Vital Signs Last Recorded V/S: Last Vital Signs Temp 98.3 F 09/20/17 13:27 Pulse 95 09/20/17 13:27 Resp 16 09/20/17 13:27 BP 150/97 H 09/20/17 13:27 Pulse Ox 97 09/20/17 13:27 - Orders/Labs/Meds Labs: Laboratory Tests 09/20/17 09/20/17 Range/Units 15:45 15:45 Urine Color Yellow (Yellow) Urine Appearance Clear (Clear) Urine pH 7.0 (5.0-8.0) Ur Specific [place] 1.025 (1.005-1.030) Urine Protein Negative (Negative) Urine Glucose (UA) Negative (Negative) Urine Ketones Negative (Negative) Urine Occult Blood Negative (Negative) Urine Nitrite Negative (Negative) Urine Bilirubin Negative (Negative) Urine Urobilinogen 0.2 (0.2-1.0) Ur Leukocyte Esterase Negative (Negative) Urine RBC 0-5 (0-5) /hpf Urine WBC 0-5 (0-5) /hpf Ur Epithelial Cells 0-5 (0-5) /hpf Urine Bacteria Rare (FEW) /hpf Urine Mucus Few (FEW) /hpf Urine Opiates Screen Presumptive positive H (NEGATIVE) Ur Buprenorphine Scrn Negative (NEGATIVE) Ur Oxycodone Screen Negative (NEGATIVE) Urine Methadone Screen Negative (NEGATIVE) Ur Propoxyphene Screen Negative (NEGATIVE) Ur Barbiturates Screen Negative (NEGATIVE) Ur Tricyclics Screen Negative (NEGATIVE) Ur Phencyclidine Scrn Negative (NEGATIVE) Ur Amphetamine Screen Negative (NEGATIVE) U Methamphetamines Scrn Negative (NEGATIVE) U Benzodiazepines Scrn Negative (NEGATIVE) U Cocaine Metab Screen Negative (NEGATIVE) U Marijuana (THC) Screen Presumptive positive H (NEGATIVE) Meds: Medications Discontinued Medications Generic Name Dose Route Start Last Admin Trade Name Rose PRN Reason Stop Dose Admin Cyclobenzaprine HCl 10 mg 09/20/17 15:54 09/20/17 16:10 Flexeril PO 09/20/17 15:55 10 mg ONETIME ONE Administration Hydromorphone HCl 1 mg 09/20/17 15:54 09/20/17 16:09 Dilaudid IM 09/20/17 15:55 1 mg ONETIME ONE Administration - Re-Assessments/Exams Free Text/Narrative Re-Assessment/Exam: Pain is to the right lower back lateral of the vertebral column. No pain with palpation of the spine. No significant findings on examination. Ordered Flexeril 10 mg by mouth and also Dilaudid 1 mg IM. Will obtain a UA and urine drug tox. UA drug tox came back positive for marijuana and also opiates. Patient states he took an opioid last night from previous prescription of his. UA was negative. Will discharge patient home with instructions as documented. Patients girlfriend is in the waiting room to give ride per patient. Unclear why patient did not inform us that he uses opioids and also marijuana with admission to the ED. Prior to discharge patient eloped without instructions by me. I contacted the number provided by patient on demographics. Patients girlfriend answered states patient is not with her. I told her patient was to get a ride from her with discharge from the E.D. She denied. Asked her to have the patient call the ED so he can get his instructions. 09/20/17 19:16 Patient called back and states he had a ride from his boss. Patient went back to work for short period of time. He was worried that it would be noted on his chart that he eloped. That is not true he was discharged with instructions, generic structures for low back pain. Thus that has been change. In addition he was informed to come back to the ED if he should have any new or worsening symptoms. Departure - Departure Time of Disposition: 17:04 Disposition: Home, Self-Care 01 Condition: Good Clinical Impression: Acute right-sided low back pain Qualifiers: Sciatica presence: without sciatica Qualified Code(s): M54.5 - Low back pain - Discharge Information Instructions: Back Pain, Adult, [id number] Referrals: Steven Dudley PA-C [Primary Care Provider] - Forms: ED Department Discharge
== END 2017-09-20 16:55 | disposition home or self-care (01) ==
LOC: JD.ED 12:41
DX: M54.5 Low back pain (principal); F17.210 Nicotine dependence, cigarettes, uncomplicated
CPT/HCPCS: 80306; 81001; 96372; 99283; A9270; J1170

== ENCOUNTER 2017-10-24 13:45 | Emergency (ER) | payer SELFPAY ==
[2017-10-24] MEDS ORDERED: Sodium Chloride 0.9% 10 ML Syringe FLUSH PRN (14:21)
[2017-10-24] MEDS ORDERED: HYDROmorphone 1 MG/ML Syringe IVPUSH ONE ×2 (14:22→17:21)
[2017-10-24] MEDS ORDERED: Ondansetron 4 MG/2 ML SDV IVPUSH ONE (14:22)
--- NOTE | 2017-10-24 14:36 | EDM.PDOC ---
ED HPI GENERAL MEDICAL PROBLEM - General Chief Complaint: Abdominal Pain Stated Complaint: Abdominal pain Time Seen by Provider: 10/24/17 14:10 Source of Information: Reports: Patient, RN Notes Reviewed History Limitations: Reports: No Limitations - History of Present Illness INITIAL COMMENTS - FREE TEXT/NARRATIVE: 31 year old male presents to the ED with epigastric pain that has been worsening over the past 5 days. The pain is worse with eating. He was seen in the clinic yesterday by Steven Dudley. His prilosec dose was increased. The pain does not radiate. It's described as a burning sensation. He has not been eating much due to the pain. He generally drinks coffee and soda throughout the day. He denies any certain foods that make his symptoms worse. He has no nausea or vomiting. He reports occasional loose stools No constipation. No fever, chills, or night sweats. He's had no abdominal surgeries. No urinary symptoms. No history of gallstones. He drinks alcohol maybe once a week. Denies tobacco use. No chest pain, cough, shortness of breath or pleuritic chest pain. Epigastric Pain Score (Numeric/FACES): 8 - Related Data Allergies Allergy/AdvReac Type Severity Reaction Status Date / Time No Known Allergies Allergy Verified 10/24/17 13:56 Home Meds: Home Meds Acetaminophen/HYDROcodone [[place] 325-5 MG] 1 tab PO Q6H PRN #10 tablet 10/24/17 [Rx] Omeprazole Magnesium [Prilosec Otc] 40 mg PO BID 10/24/17 [History] Sucralfate [Carafate] 1 gm PO QIDACANDBED #30 tablet 10/24/17 [Rx] Past Medical History - Past Health History Medical/Surgical History: Denies Medical/Surgical History Musculoskeletal History: Reports: Fracture Neurological History: Reports: Concussion, Head Trauma, Other (See Below) 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 Denies: Fever, Chills Respiratory: Reports: No Symptoms. Denies: Shortness of Breath, Cough Cardiovascular: Reports: No Symptoms. Denies: Chest Pain GI/Abdominal: Reports: Abdominal Pain, Diarrhea. Denies: Constipation, Nausea, Vomiting : Reports: No Symptoms ED EXAM, GI/ABD - Physical Exam Exam: See Below Exam Limited By: No Limitations General Appearance: Alert, WD/WN, Moderate Distress Respiratory/Chest: No Respiratory Distress, Lungs Clear, Normal Breath Sounds Cardiovascular: Regular Rate, Rhythm GI/Abdominal Exam: Normal Bowel Sounds, Soft, No Organomegaly, No Distention, Tender (epigastric and RUQ with positive lockwood's sign) Back Exam: Normal Inspection, Full Range of Motion. No: CVA Tenderness (L), CVA Tenderness (R) Course - Vital Signs Last Recorded V/S: Last Vital Signs Temp 97.0 F 10/24/17 13:57 Pulse 80 10/24/17 13:57 Resp 16 10/24/17 13:57 BP 139/87 10/24/17 13:57 Pulse Ox 100 10/24/17 13:57 - Orders/Labs/Meds Orders: Active Orders 24 hr Category Date Time Status Peripheral IV Care [RC] . DIRECTED Care 10/24/17 14:22 Active Sodium Chloride 0.9% [Saline Flush] Med 10/24/17 14:21 Active 10 ml FLUSH ASDIRECTED PRN Peripheral IV Insertion Adult [OM.PC] Stat Oth 10/24/17 14:21 Ordered Medication Orders Sodium Chloride (Saline Flush) 10 ml FLUSH ASDIRECTED PRN PRN Reason: Keep Vein Open Last Admin: 10/24/17 14:36 Dose: 10 ml Labs: Laboratory Tests 10/24/17 10/24/17 10/24/17 Range/Units 14:30 14:30 14:30 WBC 8.37 (4.23-9.07) K/mm3 RBC 5.07 (4.63-6.08) M/mm3 Hgb 15.7 (13.7-17.5) gm/L Hct 43.8 (40.1-51.0) % MCV 86.4 (79.0-92.2) fl MCH 31.0 (25.7-32.2) pg MCHC 35.8 H (32.2-35.5) g/dl RDW Std Deviation 46.1 H (35.1-43.9) fL Plt Count 215 (163-337) K/mm3 MPV 9.1 L (9.4-12.3) fl Neutrophils % (Manual) 73 H (40-60) % Band Neutrophils % 0 (0-10) % Lymphocytes % (Manual) 19 L (20-40) % Atypical Lymphs % 2 % Monocytes % (Manual) 6 (2-10) % Eosinophils % (Manual) 0 L (0.8-7.0) % Basophils % (Manual) 0 L (0.2-1.2) Platelet Estimate Adequate Plt Morphology Comment Normal RBC Morph Comment Normal Sodium 138 (136-145) mEq/L Potassium 3.9 (3.5-5.1) mEq/L Chloride 103 (98-107) mEq/L Carbon Dioxide 24 (21-32) mEq/L Anion Gap 14.9 (5-15) BUN 15 (7-18) mg/dL Creatinine 0.8 (0.7-1.3) mg/dL Est Cr Clr Drug Dosing 138.14 mL/min Estimated GFR (MDRD) > 60 (>60) mL/min BUN/Creatinine Ratio 18.8 H (14-18) Glucose 103 (74-106) mg/dL Calcium 9.3 (8.5-10.1) mg/dL Total Bilirubin 1.7 H (0.2-1.0) mg/dL GGT 40 (15-85) U/L AST 32 (15-37) U/L ALT 59 (16-63) U/L Alkaline Phosphatase 67 (46-116) U/L Total Protein 8.1 (6.4-8.2) g/dl Albumin 4.4 (3.4-5.0) g/dl Globulin 3.7 gm/dL Albumin/Globulin Ratio 1.2 (1-2) Lipase 91 (73-393) U/L H. pylori IgG Antibody Negative (NEGATIVE) Meds: Medications Generic Name Dose Route Start Last Admin Trade Name Freq PRN Reason Stop Dose Admin Sodium Chloride 10 ml 10/24/17 14:21 10/24/17 14:36 Saline Flush FLUSH 10 ml ASDIRECTED PRN Administration Keep Vein Open Discontinued Medications Generic Name Dose Route Start Last Admin Trade Name Rose PRN Reason Stop Dose Admin Al Hydroxide/Mg Hydroxide 30 0 ml 10/24/17 15:59 10/24/17 16:14 ml/ Lidocaine HCl 15 ml PO 10/24/17 16:00 45 ml ONETIME ONE Administration Hydromorphone HCl 1 mg 10/24/17 14:22 10/24/17 14:35 Dilaudid IVPUSH 10/24/17 14:23 1 mg ONETIME ONE Administration Hydromorphone HCl 1 mg 10/24/17 17:21 Dilaudid IVPUSH 10/24/17 17:22 ONETIME ONE Hyoscyamine 0.125 mg 10/24/17 16:46 10/24/17 17:00 Hyomax-Sl SL 10/24/17 16:47 0.125 mg ONETIME ONE Administration Ondansetron HCl 4 mg 10/24/17 14:22 10/24/17 14:35 Zofran IVPUSH 10/24/17 14:23 4 mg ONETIME ONE Administration - Re-Assessments/Exams Free Text/Narrative Re-Assessment/Exam: CBC and CMP are normal with the exception of a mildly elevated bilirubin. Lipase is WNL. GGT is also WNL Gallbladder ultrasound obtained. Impression per Dr. Longo: 1. slight fatty infiltration within the liver 2. no additional abnormality is identified. (gallbladder shows no gallstones. no wall thickening or biliary duct dilatation) Intiial treatment included IV Dilaudid. He had moderate improvement with this. Once labs and US came back unremarkable, KUB was ordered which shows increased stool in the right hemicolon. Likely contribution to his symptoms. A GI cocktail was also ordered. He had no improvement with the GI cocktail. When they gave Levsin. He also had no improvement with this. He was then given an additional dose of Dilaudid. Acute causes have been ruled out. He will be started on carafate in addition to his omeprazole. Also given small rx of norco for his pain. He was educated on dietary modifications for gastritis. He was instructed to follow-up with Steven Dudley PAC next week. Discharge instructions as documented. Departure - Departure Time of Disposition: 17:21 Disposition: Home, Self-Care 01 Condition: Good Clinical Impression: Epigastric pain Gastritis Qualifiers: Gastritis type: unspecified gastritis Chronicity: acute Gastritis bleeding: without bleeding Qualified Code(s): K29.00 - Acute gastritis without bleeding - Discharge Information Prescriptions: Acetaminophen/HYDROcodone [[place] 325-5 MG] 1 tab PO Q6H PRN #10 tablet PRN Reason: Pain Sucralfate [Carafate] 1 gm PO QIDACANDBED #30 tablet Referrals: Steven Dudley PA-C [Primary Care Provider] - Forms: ED Department Discharge Additional Instructions: Continue the Omeprazole as prescribed Carafate 1 tab 30 minutes before each meal and at bedtime Zantac 150mg twice a day as needed for abdominal pain not relieved by the above medications Avoid coffee, caffeine, alcohol spicy foods and acidic foods. Return to ER with new or worsening symptoms Follow-up with Steven Dudley if symptoms do not improve - My Orders Last 24 Hours: My Active Orders 10/24/17 14:21 Sodium Chloride 0.9% [Saline Flush] 10 ml FLUSH ASDIRECTED PRN Peripheral IV Insertion Adult [OM.PC] Stat 10/24/17 14:22 Peripheral IV Care [RC] . DIRECTED - Assessment/Plan Last 24 Hours: My Active Orders 10/24/17 14:21 Sodium Chloride 0.9% [Saline Flush] 10 ml FLUSH ASDIRECTED PRN Peripheral IV Insertion Adult [OM.PC] Stat 10/24/17 14:22 Peripheral IV Care [RC] . DIRECTED
--- NOTE | 2017-10-24 15:48 | US ---
Limited abdominal ultrasound: Multiple real-time images of the upper right abdomen were obtained. Comparison: Prior right upper quadrant abdominal ultrasound of 06/27/17. Liver is slightly echogenic likely representing mild fatty infiltration. Gallbladder shows no gallstones. No gallbladder wall thickening or biliary duct dilatation is seen. Right kidney shows a small hypoechoic area within the renal pelvis believed to be artifact. Right kidney shows no hydronephrosis or mass. Visualized portions of the pancreas are within normal limits. Impression: 1. Slight fatty infiltration within the liver. 2. No additional abnormality is identified on right upper quadrant abdominal ultrasound. Note: No significant change is seen from prior right upper quadrant abdominal ultrasound of 06/27/17. Diagnostic code #3
[2017-10-24] MEDS ORDERED: Alum Hydrox/Mag Hydrox/Simeth 30 ML, Lidocaine 2% 15 ML PO ONE ×2 (15:59)
[2017-10-24] MEDS ORDERED: Hyoscyamine 0.125 MG Tab.SL SL ONE (16:46)
--- NOTE | 2017-10-24 16:55 | CR ---
Abdomen: Supine view of the abdomen was obtained. Comparison: No prior abdominal x-ray. Calcifications are seen within the pelvis most likely representing phleboliths. 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 Bowel gas pattern is normal. Bony structures are unremarkable. No soft tissue abnormality is seen. Impression: 1. Incidental findings as noted above. Diagnostic code #2
[2017-10-24 17:42] VITALS: BP 134/74
== END 2017-10-24 17:40 | disposition home or self-care (01) ==
LOC: JD.ED 13:45
DX: K29.00 Acute gastritis without bleeding (principal); F17.210 Nicotine dependence, cigarettes, uncomplicated
CPT/HCPCS: 36415; 74000; 76705; 80053; 82977; 83690; 85025; 86677; 96374; 96375; 96376; 99285; A9270; J1170; J2405; J7050; 99284

== ENCOUNTER 2018-08-21 07:25 | Emergency (ER) | payer BC, OTHER ==
[2018-08-21 07:44] VITALS: BP 145/94
--- NOTE | 2018-08-21 08:11 | EDM.PDOC ---
ED HPI GENERAL MEDICAL PROBLEM - General Chief Complaint: Respiratory Problem Stated Complaint: RESPIRATORY ISSUES Time Seen by Provider: 08/21/18 07:45 Source of Information: Reports: Patient, RN Notes Reviewed - History of Present Illness INITIAL COMMENTS - FREE TEXT/NARRATIVE: 32-year-old male with onset of cough sore throat nasal and sinus congestion 2-3 days ago. Today he feels much more ill with very scratchy painful throat, hard to swallow. he has had chills, low-grade fever. Productive yesterday, minimally productive this morning. He does have headache, feels achy, tried to go to work but was unable to do that. He does smoke "occasional". Has been using over-the- counter Robitussin but states "it is not working". 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 Denies: Hemoptysis Cardiovascular: Reports: Chest Pain (With coughing) GI/Abdominal: Denies: Vomiting Musculoskeletal: Reports: Other Skin: Denies: Rash (Generalized achiness) Neurological: Reports: Headache ED EXAM, GENERAL - Physical Exam Exam: See Below General Appearance: Alert, Mild Distress Ears: Normal Canal, Normal TMs Throat/Mouth: Inflammation (Mild, no exudate) Neck: Supple Respiratory/Chest: No Respiratory Distress, Lungs Clear, Normal Breath Sounds. No: Rhonchi, Wheezing Extremities: Normal Inspection Neurological: Alert, Oriented, No Motor/Sensory Deficits Skin Exam: Warm, Dry, Normal Color Course - Vital Signs Last Recorded V/S: Last Vital Signs Temp 99.2 F 08/21/18 07:39 Pulse 85 08/21/18 07:39 Resp 19 08/21/18 07:39 BP 145/94 H 08/21/18 07:39 Pulse Ox 96 08/21/18 07:39 Departure - Departure Time of Disposition: 08:12 Disposition: Home, Self-Care 01 Condition: Fair Clinical Impression: Bronchitis - Discharge Information Prescriptions: Acetaminophen/HYDROcodone [[place] 325-5 MG] 1 tab PO Q4H PRN #10 tablet PRN Reason: Pain Instructions: Acute Bronchitis, Adult, [id number] Referrals: Jessa Guerrero MD [Primary Care Provider] - Forms: ED Department Discharge, ED Return to Work/School Form Additional Instructions: Rest, drink plenty of water to maintain hydration, vaporizer or steam as needed , zithromax antibiotic as prescribed. Continue [id number] cough medication as needed and as directed per label instructions, hydrocodone if needed for severe throat discomfort, do not drive or work when taking hydrocodone. Follow up clinic if not much better within 3-5 days as expected.
== END 2018-08-21 08:26 | disposition home or self-care (01) ==
LOC: JD.ED 07:25
DX: J40 Bronchitis, not specified as acute or chronic (principal)
CPT/HCPCS: 99283